=== PATIENT | female | born 1930 | race Hispanic/Latino ===

== ENCOUNTER 2018-02-17 11:57 | Inpatient (IN) | payer MEDICARE ==
[2018-02-17 12:01] VITALS: BMI 14.1
[2018-02-17] MEDS ORDERED: Sodium Chloride 0.9% 1,000 ML IV STA (12:14)
--- NOTE | 2018-02-17 12:16 | ED PDOC ---
Arrival/HPI - General Chief Complaint: GI Problem Time Seen by Provider: 02/17/18 12:14 Historian: Patient, Family - History of Present Illness Narrative History of Present Illness (Text): 02/17/18 12:16 Patient reports 5 day history of diarrhea, ranging from one episode per day to 4 -5 episodes per day. No fever, nausea, vomiting, or abdominal pain. Patient was on Augmentin for a UTI two months ago. Family notes she has not been eating very much, and has had generalized weakness for the past day or so, which is what concerned them. Patient has not had headache, dizziness or syncope. Time/Duration: Other (5 days) Symptom Course: Improving Quality: Other (No pain) Past Medical History - Provider Review Nursing Documentation Reviewed: Yes - Travel History Have you recently traveled outside [place] w/in the past 3 mons?: No - Infectious Disease Hx of Infectious Diseases: None - Cardiac Hx Cardiac Disorders: Yes (Afib) Hx Atrial Fibrillation: Yes Hx Hypertension: Yes - Pulmonary Hx Pneumonia: Yes - Neurological Hx Neurological Disorder: Yes (forgetful) - HEENT Hx Cataracts: Yes (b/l sx) Hx Deafness: (family denies) - Renal Hx Renal Disorder: No - Endocrine/Metabolic Hx Endocrine Disorders: No - Hematological/Oncological Hx Blood Disorders: No Hx Cancer: Yes (skin ca removed from nose) Other/Comment: family not sure what kind of skin ca pt had - Integumentary Hx Dermatological Disorder: No Other/Comment: AGE SPOTS over legs and chest, right posterior ankle healed wound - Musculoskeletal/Rheumatological Hx Arthritis: Yes (OA) - Gastrointestinal Hx Gastrointestinal Disorders: No - Genitourinary/Gynecological Hx Genitourinary Disorders: No Hx Reproductive Disorders: No - Psychiatric Hx Anxiety: Yes Hx Substance Use: No - Surgical History Other/Comment: HYSTERECTOMY,CATARACT SURGERY. Right Hip repair Oct 2015 - Anesthesia Hx Anesthesia: Yes Hx Anesthesia Reactions: No Hx Malignant Hyperthermia: No Family/Social History - Physician Review Nursing Documentation Reviewed: Yes Family/Social History: Unknown Family HX Smoking Status: Never Smoked Hx Alcohol Use: No Hx Substance Use: No Allergies/Home Meds Allergies/Adverse Reactions: Allergies iv dye Adverse Reaction (Uncoded 05/14/16 09:28) SWELLING Home Medications: Home Meds Medication Instructions Recorded Confirmed Digoxin 0.125 mg PO DAILY 03/27/16 02/17/18 Sertraline [Zoloft] 25 mg PO DAILY 03/27/16 02/17/18 ALPRAZolam [Xanax] 0.5 mg PO DAILY 05/09/16 02/17/18 Review of Systems - Review of Systems Constitutional: Other (Generalized weakness) Respiratory: Normal Cardiovascular: Normal Gastrointestinal: Diarrhea. absent: Abdominal Pain, Nausea, Vomiting Musculoskeletal: Normal Skin: Normal Neurological: absent: Headache, Dizziness Psychiatric: Normal Physical Exam Vital Signs Reviewed: Yes Vital Signs Temp Pulse Resp BP Pulse Ox 02/17/18 15:14 98.0 F 68 18 135/70 99 02/17/18 12:10 98.1 F 64 18 126/74 97 Temperature: Afebrile Blood Pressure: Normal Pulse: Regular Respiratory Rate: Normal Appearance: Positive for: Well-Appearing, Non-Toxic Pain Distress: None Mental Status: Positive for: other (Baseline mild dementia- forgetful about some things but oriented) - Systems Exam Head: Present: Atraumatic Pupils: Present: PERRL Extroacular Muscles: Present: EOMI Conjunctiva: Present: Normal Mouth: Present: Moist Mucous Membranes Respiratory/Chest: Present: Clear to Auscultation Cardiovascular: Present: Regular Rate and Rhythm Abdomen: No: Tenderness, Distention, Rebound, Guarding Upper Extremity: Present: Normal Inspection Lower Extremity: Present: Normal Inspection Neurological: Present: GCS=15, Speech Normal Skin: Present: Warm, Dry Medical Decision Making ED Course and Treatment: Patient given 1L NS bolus. 02/17/18 14:20 Results discussed with patient and family. Electrolytes within normal limits. Family asking for cdiff stool test, which was ordered, however explained that results will not be immediately available. Patient's family states that patient has had decreased UOP and is more confused than usual. States that they would feel more comfortable if the patient was admitted. 02/17/18 15:[address] García who accepts admission. Bridging orders placed. Discussed plan with patient and family. Patient non-toxic, awake and alert, in no distress with no complaints throughout Emergency department course. Re-evaluation Time: 14:20 Reassessment Condition: Improved - Lab Interpretations Lab Results: 02/17/18 12:50 02/17/18 12:50 Lab Results 02/17/18 12:50: Sodium 143, Potassium 4.3, Chloride 100, Carbon Dioxide 28, Anion Gap 19, BUN 17, Creatinine 0.8, Est GFR ( Amer) > 60, Est GFR (Non- Af Amer) > 60, Random Glucose 120 H, Calcium 9.7, Phosphorus 3.4, Magnesium 1.9 02/17/18 12:50: WBC 5.3, RBC 4.43, Hgb 13.0, Hct 39.1, MCV 88.3, MCH 29.3, MCHC 33.2, RDW 14.8 H, Plt Count 111 L, MPV 9.4, Gran % 79.0 H, Lymph % (Auto) 11.8 L , F[place]ardo % (Auto) 8.3 H, Eos % (Auto) 0.9 L, Baso % (Auto) 0.0, Gran # 4.16, Lymph # (Auto) 0.6 L, F[place]ardo # (Auto) 0.4, Eos # (Auto) 0.1, Baso # (Auto) 0.00 - Medication Orders Current Medication Orders: Discontinued Medications Sodium Chloride (Sodium Chloride 0.9%) 1,000 mls @ 999 mls/hr IV .[id number] STA Stop: 02/17/18 13:14 Last Admin: 02/17/18 13:02 Dose: 999 mls/hr eMAR Start Stop Document 02/17/18 13:02 [facility] [place] (Rec: 02/17/18 13:02 [facility] [place] [id number]) Intravenous Solution Start Date 02/17/18 Start Time 13:02 End Date 02/17/18 End time 13:03 Total Infusion Time 1 Disposition/Present on Arrival - Present on Arrival Any Indicators Present on Arrival: No History of DVT/PE: No History of Uncontrolled Diabetes: No Urinary Catheter: No History of Decub. Ulcer: No History Surgical Site Infection Following: None - Disposition Have Diagnosis and Disposition been Completed?: Yes Diagnosis: Diarrhea Disposition: HOSPITALIZED Disposition Time: 15:42 (Admitted to Dr. García- observation) Patient Plan: Observation Condition: GOOD Forms: [facility] (Yoruba)
[2018-02-17 13:10] LABS: EOS # 0.1 (0.0-0.7); EOS % 0.9 % (1.5-5.0); GRAN # 4.16 (1.4-6.5); LYMPH # 0.6 (1.2-3.4); LYMPH % 11.8 % (22.0-35.0); MEAN CELL VOLUME 88.3 fl (80.0-105.0); MEAN CORPUSCULAR HEMOGLOBIN 29.3 pg (25.0-35.0); MEAN CORPUSCULAR HGB CONC 33.2 g/dl (31.0-37.0); MEAN PLATELET VOLUME 9.4 fl (7.0-11.0); MONO # 0.4 (0.1-0.6); MONO % 8.3 % (1.0-6.0); RBC 4.43 10^6/uL (3.5-6.1); RED CELL DISTRIBUTION WIDTH 14.8 % (11.5-14.5); WHITE BLOOD COUNT 5.3 10^3/ul (4.5-11.0)
[2018-02-17 13:20] LABS: BLOOD UREA NITROGEN 17 mg/dL (7-21); CALCIUM 9.7 mg/dL (8.4-10.5); GFR AFRICAN-AMERICAN > 60; GFR NON-AFRICAN AMERICAN > 60
[2018-02-17] MEDS: Dextrose 5%/0.45% NS 1,000 ML IV SCH (19:09)
[2018-02-17] MEDS: Digoxin 125 mcg (0.125 mg) Tab PO SCH (19:41)
[2018-02-18 06:30] LABS: BASO # 0.01 K/mm3 (0.0-2.0); BASO % 0.3 % (0.0-3.0); EOS # 0.1 (0.0-0.7); EOS % 3.1 % (1.5-5.0); GRAN # 2.48 (1.4-6.5); GRAN % 63.9 % (50.0-68.0); LYMPH # 0.9 (1.2-3.4); LYMPH % 23.7 % (22.0-35.0); MEAN CELL VOLUME 88.2 fl (80.0-105.0); MEAN CORPUSCULAR HEMOGLOBIN 29.1 pg (25.0-35.0); MEAN PLATELET VOLUME 9.6 fl (7.0-11.0); MONO # 0.4 (0.1-0.6); RBC 3.47 10^6/uL (3.5-6.1); RED CELL DISTRIBUTION WIDTH 14.9 % (11.5-14.5); WHITE BLOOD COUNT 3.9 10^3/ul (4.5-11.0)
[2018-02-18 06:38] LABS: HEMOGLOBIN 10.1 g/dL (12.0-16.0)
[2018-02-18 07:24] LABS: ALB/GLOB RATIO 1.2 (1.1-1.8); ALBUMIN 3.1 g/dL (3.0-4.8); ALT/SGPT 20 U/L (7-56); AST/SGOT 22 U/L (14-36); BLOOD UREA NITROGEN 13 mg/dL (7-21); CALCIUM 8.3 mg/dL (8.4-10.5); GFR AFRICAN-AMERICAN > 60; GFR NON-AFRICAN AMERICAN > 60
[2018-02-18] MEDS: Digoxin 125 mcg (0.125 mg) Tab PO SCH (10:30)
[2018-02-18] MEDS ORDERED: Potassium Chloride 20 mEq ER Tab PO ONE (10:43)
--- NOTE | 2018-02-18 18:20 | US ---
PROCEDURE: Bilateral carotid artery duplex ultrasound HISTORY: Carotid stenosis carotid bruit PHYSICIAN(S): Isael Jimenez MD. TECHNIQUE: Duplex sonography and color-flow Doppler were used to evaluate the carotid bifurcations and limited segments of the vertebral arteries bilaterally. FINDINGS: There is mild to moderate focal heterogeneous plaque noted at the carotid bifurcations bilaterally. The peak systolic velocity in the proximal right internal carotid artery is 84 cm/sec. This corresponds to a 20 to 39% proximal right ICA stenosis. Normal systolic velocities are noted in the proximal right external carotid artery. There is antegrade flow in the right vertebral artery. The peak systolic velocity in the proximal left internal carotid artery is 61 cm/sec. This corresponds to a 20 to 39% proximal left ICA stenosis. Normal systolic velocities are noted in the proximal left external carotid artery. There is antegrade flow in the left vertebral artery. IMPRESSION: 1. 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 2. Antegrade flow in both vertebral arteries.
[2018-02-18] MEDS: Vancomycin 500 mg (Oral/Rectal USE) PO SCH ×2 (19:01→21:12)
--- NOTE | 2018-02-18 20:35 | CON ---
BRIEF CLINICAL HISTORY: This is an 87-year-old female with past medical history significant for chronic atrial fibrillation on anticoagulation hypertension, idiopathic thrombocytopenic purpura admitted after the family brought because the patient was having diarrhea, 1 to 5 per day since last Thursday. Though, the patient completely denies that only 2 episode, but the family insist that she is having 5 episode of diarrhea everyday. Also, feeling very weak and lethargic. PAST MEDICAL HISTORY: Significant for hypertension, chronic atrial fibrillation, idiopathic thrombocytopenic purpura, aortic stenosis. PAST SURGICAL HISTORY: Significant for fall status post hip fracture, status post open reduction and internal fixation in 2016. PREVIOUS CARDIAC WORKUP: Patient had echocardiography done on 10/15/2015 that shows ejection fraction 65%, trace aortic regurgitation, mild aortic stenosis versus aortic sclerosis, moderate to severe mitral regurgitation, moderate to severe tricuspid regurgitation, RV systolic pressure 47, multiple just probably RV systolic pressure underestimated because of JET configuration. The patient's bilateral carotid on 03/26/2016 that shows bilateral 20-39% stenosis. SOCIAL HISTORY: Denies smoking. Denies any history of alcohol abuse. CURRENT MEDICATIONS: The patient is taking at home Zoloft 25 mg daily, metoprolol Lopressor 50 b.i.d., digoxin 0.125 mg daily, Eliquis 2.5 mg daily, Xanax 0.5 mg daily. REVIEW OF SYSTEMS: As per HPI. PHYSICAL EXAMINATION VITAL SIGNS: As follows: Temperature afebrile, heart rate 83, blood pressure 150/83. HEENT: PERRLA. Extraocular muscles intact. NECK: Supple. No carotid bruit or thyromegaly. CHEST: Clear to auscultation. HEART: S1, S2 regular. ABDOMEN: Soft. EXTREMITIES: Clubbing and cyanosis negative. LABORATORY DATA: Blood workup as follows: WBC 3.9, hemoglobin , hematocrit 30.6, platelet count 102. Chemistries: Shows sodium 140, potassium 3.3, chloride of 104, carbon dioxide 27, anion gap of 12, BUN 13, creatinine 0.6. IMPRESSION: Diarrhea rule out Clostridium difficile colitis because the patient had recently got antibiotics, history of aortic stenosis, history of severe mitral regurgitation, history of atrial fibrillation, history of failure to thrive, history of idiopathic thrombocytopenic purpura for a long time, hypertension, atrial fibrillation, history of hip surgery, hip fracture, also mild pulmonary hypertension. RECOMMENDATIONS: We will send stool for C. diff colitis, GI evaluation. We will get echo to suggest severity of progression of aortic stenosis, severity of mitral regurgitation. Also, we will get carotid Duplex because last time in 2015, the patient had bilateral , [id number] disease. We will follow with you. Thank you, Dr. García, for providing us the opportunity in taking care of the patient, Mckenna Cardoso. We will get lipid profile, TSH, hemoglobin A1c as well. Kathy Boothe MD
--- NOTE | 2018-02-18 21:02 | HP ---
HISTORY OF PRESENT ILLNESS: Patient is 87 years old, who is basically homebound, lives with her starch and prosize mixer. According to patient and person taking care, she has been having nausea, diarrhea, poor oral intake for almost a week, got worse in the last 2 days. Yesterday she was getting extremely weak that she was unable to get out of bed. They had to drag her. Usually she does ambulate somewhat with minimal assistance. So, she was brought to Emergency Room for further evaluation. She was found to be dehydrated, so was started on IV fluids. Had episode of two BMs and so far no hemoptysis, no hematemesis. Patient states she does have appetite. No history of fever, no chills. PAST MEDICAL HISTORY: Significant for, 1. Hypertension. 2. Chronic AFib, on anticoagulant. 3. Anxiety disorder. 4. Dementia. ALLERGIES: SHE IS ALLERGIC TO IV DYES. MEDICATIONS AT HOME: She is on Zoloft 25 daily, metoprolol 50 mg twice a day, digoxin 0.125 daily, Eliquis 2.5 b.i.d., Xanax 0.5 daily. SOCIAL HISTORY: She lives with home health aide in her own house. No history of smoking, drinking, or alcohol use. PHYSICAL EXAMINATION: GENERAL: She is awake, alert, oriented, and answers simple questions, a little forgetful. According to starch and prosize mixer, she gets sundowning and gets confused at times. VITAL SIGNS: She is afebrile, pulse 83, respiration 18, blood pressure 150/83. LUNGS: Bilateral good airflow. No rhonchi or crackles. HEART: S1 and S2 audible. ABDOMEN: Soft, nontender, no rebound, no guarding. NEUROLOGICALLY: Patient is awake and alert and oriented, confused at times. LABORATORY DATA: WBC 3.9, hemoglobin 10.1, hematocrit 30.6, platelet of 102. Chemistry: Sodium 140, potassium 3.3, chloride 104, CO2 of 27, BUN 13, creatinine 0.6, blood sugar of 117. Digoxin level is 0.9. ASSESSMENT AND PLAN: 1. Gastroenteritis. 2. Dehydration. 3. Chronic atrial fibrillation. 4. Deconditioning and difficulty walking. PLAN: Continue patient on IV fluid, echo and carotid Doppler has been requested, encourage physical therapy. Dr. Townsend to evaluate the patient and I will supplement potassium, continue IV fluid until she catch up on her fluid intake. I will follow up electrolyte in the a.m. Sulaiman García MD
[2018-02-19 07:08] LABS: BASO # 0.01 K/mm3 (0.0-2.0); BASO % 0.3 % (0.0-3.0); EOS # 0.1 (0.0-0.7); EOS % 1.4 % (1.5-5.0); GRAN # 2.32 (1.4-6.5); GRAN % 66.7 % (50.0-68.0); HEMOGLOBIN 10.7 g/dL (12.0-16.0); LYMPH # 0.7 (1.2-3.4); LYMPH % 20.7 % (22.0-35.0); MEAN CELL VOLUME 86.9 fl (80.0-105.0); MEAN CORPUSCULAR HEMOGLOBIN 28.5 pg (25.0-35.0); MEAN CORPUSCULAR HGB CONC 32.8 g/dl (31.0-37.0); MEAN PLATELET VOLUME 9.5 fl (7.0-11.0); MONO # 0.4 (0.1-0.6); MONO % 10.9 % (1.0-6.0); RBC 3.75 10^6/uL (3.5-6.1); RED CELL DISTRIBUTION WIDTH 14.7 % (11.5-14.5); WHITE BLOOD COUNT 3.5 10^3/ul (4.5-11.0)
[2018-02-19 07:18] LABS: ALB/GLOB RATIO 1.3 (1.1-1.8); ALBUMIN 3.3 g/dL (3.0-4.8); ALT/SGPT 19 U/L (7-56); AST/SGOT 26 U/L (14-36); BLOOD UREA NITROGEN 8 mg/dL (7-21); CALCIUM 8.9 mg/dL (8.4-10.5); GFR AFRICAN-AMERICAN > 60; GFR NON-AFRICAN AMERICAN > 60; HDL CHOLESTEROL 29 mg/dL (29-60)
[2018-02-19 07:28] LABS: LDL CHOLESTEROL 59 mg/dL (0-129)
--- NOTE | 2018-02-19 07:49 | CP.PCM.PN ---
Subjective - Date & Time of Evaluation Date of Evaluation: 02/19/18 Time of Evaluation: 06:45 - Subjective Subjective: Awake,alert,lying in bed,no distress Reason for consultation and follow up: Cardiac evaluation, history of chronic atrial fibrillation on eliquis,hypertension, idiopathic thrombocytopenic purpura , admitted for diarrhea Seen and examined by me and Dr. Boothe Objective - Vital Signs/Intake and Output Vital Signs (last 24 hours): Temp Pulse Resp BP Pulse Ox 98.1 F 67 16 147/72 100 02/18/18 22:21 02/18/18 22:21 02/18/18 22:21 02/18/18 22:21 02/18/18 22:21 - Medications Medications: Current Medications Alprazolam (Xanax) 0.5 mg PO DAILY PENDING SALE TO [facility] PRN Reason: Protocol Last Admin: 02/18/18 21:12 Dose: 0.5 mg Apixaban (Eliquis) 2.5 mg PO BID PENDING SALE TO [facility] PRN Reason: Protocol Last Admin: 02/18/18 17:30 Dose: 2.5 mg Digoxin (Digoxin) 0.125 mg PO DAILY PENDING SALE TO [facility] Last Admin: 02/18/18 10:30 Dose: 0.125 mg Dextrose/Sodium Chloride (Dextrose 5%/0.45% Ns 1000 Ml) 1,000 mls @ 75 mls/hr IV .[id number] PENDING SALE TO [facility] Last Admin: 02/17/18 19:09 Dose: 75 mls/hr Metoprolol Tartrate (Lopressor) 50 mg PO BID PENDING SALE TO [facility] Last Admin: 02/18/18 17:29 Dose: 50 mg Sertraline HCl (Zoloft) 25 mg PO DAILY PENDING SALE TO [facility] Last Admin: 02/18/18 10:33 Dose: 25 mg Vancomycin HCl (Vancocin (Oral/Rectal Use)) 250 mg PO QID PENDING SALE TO [facility] PRN Reason: Protocol Last Admin: 02/18/18 21:12 Dose: 250 mg - Labs Labs: 02/19/18 06:30 02/19/18 06:30 - Constitutional Appears: No Acute Distress, Cachectic - Eye Exam Eye Exam: Normal appearance - ENT Exam ENT Exam: Mucous Membranes Moist - Respiratory Exam Respiratory Exam: Clear to Ausculation Bilateral, NORMAL BREATHING PATTERN - Cardiovascular Exam Cardiovascular Exam: +S1, +S2 - GI/Abdominal Exam GI & Abdominal Exam: Soft, Normal Bowel Sounds - Extremities Exam Extremities Exam: Normal Capillary Refill - Neurological Exam Neurological Exam: Alert, Awake - Psychiatric Exam Psychiatric exam: Normal Affect, Normal Mood - Skin Skin Exam: Normal Color, Warm Assessment and Plan - Assessment and Plan (Free Text) Assessment: A 87 year old female who was brought to ER by family member due to diarrhea for 5 days. History of chronic atrial fibrillation on eliquis,hypertension, idiopathic thrombocytopenic purpura, dementia,anxiety. On contact isolation for positive C-diff infection., on antibiotics. Plan: On contact isolation for positive stool C-diff On antibiotics, oral Vancomycin ID on consult Systolic blood pressure 150's-160's Will add Norvasc 5 mg daily Heart rate stable Stable cardiac status On Eliquis 2.5 mg BID,Digoxin 0.125mg BID, Lopressor 50 mg BID Continue IV fluids for hydration Continue current treatment Continue current medications Will follow up Plan and treatment discussed with Dr. Boothe
[2018-02-19] MEDS: Vancomycin 500 mg (Oral/Rectal USE) PO SCH (10:00)
[2018-02-19] MEDS: Digoxin 125 mcg (0.125 mg) Tab PO SCH (10:43)
[2018-02-19] MEDS: Dextrose 5%/0.45% NS 1,000 ML IV SCH ×2 (10:44→16:28)
--- NOTE | 2018-02-19 11:56 | CP.PCM.CON ---
<Marck Verdugo - Last Filed: 02/19/18 12:01> History of Present Illness - History of Present Illness History of Present Illness: Podiatry Consult note for Dr. Capellan 87F with PMH including A fib and HTN seen for consult of onychomycosis. Patient is AAO x 3 and NAD, resting comfortably in bed with her daughter at bedside. Patient states that her nails are elongated and painful. She denies any further pedal complaints at this time. Review of Systems - Review of Systems All systems: reviewed and no additional remarkable complaints except Review of Systems: as per HPI Past Patient History - Infectious Disease Hx of Infectious Diseases: None - Past Social History Smoking Status: Never Smoked - CARDIAC Hx Cardiac Disorders: Yes (A fib) Hx Hypertension: Yes - PULMONARY Hx Pneumonia: Yes - NEUROLOGICAL Hx Neurological Disorder: Yes (forgetful) Hx Dementia: Yes - HEENT Hx Cataracts: Yes (b/l sx) Hx Deafness: (family denies) - RENAL Hx Chronic Kidney Disease: No - ENDOCRINE/METABOLIC Hx Endocrine Disorders: No - HEMATOLOGICAL/ONCOLOGICAL Hx Blood Disorders: No Hx Cancer: Yes (skin ca removed from nose) Other/Comment: family not sure what kind of skin ca pt had - INTEGUMENTARY Hx Dermatological Problems: No Hx Basil Cell: (skin CA (nose)) Hx Melanoma: Yes Other/Comment: AGE SPOTS over legs and chest, right posterior ankle healed wound - MUSCULOSKELETAL/RHEUMATOLOGICAL Hx Arthritis: Yes - GASTROINTESTINAL Hx Gastrointestinal Disorders: No - GENITOURINARY/GYNECOLOGICAL Hx Urinary Tract Infection: Yes - PSYCHIATRIC Hx Anxiety: Yes Hx Depression: Yes - SURGICAL HISTORY Hx Hysterectomy: Yes (age 44 yrs) Other/Comment: HYSTERECTOMY,CATARACT SURGERY. Right Hip repair Oct 2015 - ANESTHESIA Hx Anesthesia: Yes Hx Anesthesia Reactions: No Hx Malignant Hyperthermia: No Meds Allergies/Adverse Reactions: Allergies Allergy/AdvReac Type Severity Reaction Status Date / Time iv dye AdvReac SWELLING Uncoded 02/17/18 20:00 - Medications Medications: Current Medications Alprazolam (Xanax) 0.5 mg PO DAILY [facility] PRN Reason: Protocol Last Admin: 02/18/18 21:12 Dose: 0.5 mg Amlodipine Besylate (Norvasc) 5 mg PO DAILY [facility] Last Admin: 02/19/18 10:44 Dose: 5 mg Apixaban (Eliquis) 2.5 mg PO BID [facility] PRN Reason: Protocol Last Admin: 02/19/18 10:44 Dose: 2.5 mg Digoxin (Digoxin) 0.125 mg PO DAILY [facility] Last Admin: 02/19/18 10:43 Dose: 0.125 mg Dextrose/Sodium Chloride (Dextrose 5%/0.45% Ns 1000 Ml) 1,000 mls @ 75 mls/hr IV .[id number] [facility] Last Admin: 02/19/18 10:44 Dose: 75 mls/hr Metoprolol Tartrate (Lopressor) 50 mg PO BID [facility] Last Admin: 02/19/18 10:44 Dose: 50 mg Sertraline HCl (Zoloft) 25 mg PO DAILY [facility] Last Admin: 02/19/18 10:44 Dose: 25 mg Vancomycin HCl (Vancocin 25 Mg/Ml (Oral Use)) 250 mg PO QID [facility] PRN Reason: Protocol Physical Exam - Constitutional Appears: Well, Non-toxic, No Acute Distress - Head Exam Head Exam: ATRAUMATIC, NORMOCEPHALIC - Extremities Exam Additional comments: B/l LE focused exam: Vasc: DP/PT pulses faintly palpable b/l. Skin temperature warm to warm from proximal to distal. CFT < 3 seconds to all digits b/l. No edema noted b/l Neuro: Epicritic and protective sensation grossly intact b/l Derm: Elongated, thickened, yellow nails noted to digits 1-5 b/l. No open lesions, wounds, maceration, xerosis, abnormal pigmentation or abnormal growths noted b/l MSK: Hammering of digits 2-5 b/l. HAV b/l. MMT appropriate for age. ROM WNL at all major joints except in digits where rigid contractures are noted - Neurological Exam Neurological exam: Alert, Oriented x3 - Psychiatric Exam Psychiatric exam: Normal Affect, Normal Mood Results - Vital Signs Recent Vital Signs: Last Vital Signs Temp 97.6 F 02/19/18 06:00 Pulse 62 02/19/18 06:00 Resp 18 02/19/18 06:00 BP 156/75 H 02/19/18 06:00 Pulse Ox 95 02/19/18 06:00 - Labs Result Diagrams: 02/19/18 06:30 02/19/18 06:30 Labs: Laboratory Results - last 24 hr 06/02/19/18 02/19/18 06:30 06:30 06:30 WBC 3.5 L RBC 3.75 Hgb 10.7 L Hct 32.6 L MCV 86.9 MCH 28.5 MCHC 32.8 RDW 14.7 H Plt Count 112 L MPV 9.5 Gran % 66.7 Lymph % (Auto) 20.7 L [place] % (Auto) 10.9 H Eos % (Auto) 1.4 L Baso % (Auto) 0.3 Gran # 2.32 Lymph # (Auto) 0.7 L [place] # (Auto) 0.4 Eos # (Auto) 0.1 Baso # (Auto) 0.01 Sodium 145 Potassium 4.4 Chloride 107 Carbon Dioxide 27 Anion Gap 15 BUN 8 Creatinine 0.5 L Est GFR ( Amer) > 60 Est GFR (Non-Af Amer) > 60 Random Glucose 126 H Calcium 8.9 Phosphorus 2.3 L Magnesium 1.8 Total Bilirubin 0.4 AST 26 ALT 19 Alkaline Phosphatase 74 Total Protein 6.0 Albumin 3.3 Globulin 2.6 Albumin/Globulin Ratio 1.3 Triglycerides 96 Cholesterol 109 L LDL Cholesterol Direct 59 HDL Cholesterol 29 TSH 3rd Generation 2.07 Assessment & Plan - Assessment and Plan (Free Text) Assessment: 87F with PMH including A fib and HTN seen for elongated, thickened painful toenails b/l Plan: Patient seen and evaluated Plan discussed with attending Dr. Capellan Afebrile, WBC 8.6 Patient's nails debrided down to appropriate length 1-5 b/l without any incident using nail nippers Offloading boots ordered to be worn at all times while in bed Patient is stable from podiatric standpoint at this time Podiatry to sign off Please reconsult in future as needed - Date & Time Date: 02/19/18 Time: 12:01 <Kumar Capellan - Last Filed: 02/19/18 15:07> Meds - Medications Medications: Current Medications Alprazolam (Xanax) 0.5 mg PO DAILY [facility] PRN Reason: Protocol Last Admin: 02/19/18 15:05 Dose: Not Given Amlodipine Besylate (Norvasc) 5 mg PO DAILY [facility] Last Admin: 02/19/18 10:44 Dose: 5 mg Apixaban (Eliquis) 2.5 mg PO BID [facility] PRN Reason: Protocol Last Admin: 02/19/18 10:44 Dose: 2.5 mg Digoxin (Digoxin) 0.125 mg PO DAILY [facility] Last Admin: 02/19/18 10:43 Dose: 0.125 mg Dextrose/Sodium Chloride (Dextrose 5%/0.45% Ns 1000 Ml) 1,000 mls @ 75 mls/hr IV .[id number] [facility] Last Admin: 02/19/18 10:44 Dose: 75 mls/hr Metoprolol Tartrate (Lopressor) 50 mg PO BID [facility] Last Admin: 02/19/18 10:44 Dose: 50 mg Risperidone (Risperdal Tab) 0.25 mg PO HS [facility] PRN Reason: Protocol Risperidone (Risperdal Tab) 0.25 mg PO DAILY [facility] PRN Reason: Protocol Sertraline HCl (Zoloft) 25 mg PO DAILY [facility] Last Admin: 02/19/18 10:44 Dose: 25 mg Vancomycin HCl (Vancocin 25 Mg/Ml (Oral Use)) 250 mg PO QID [facility] PRN Reason: Protocol Last Admin: 02/19/18 13:09 Dose: 250 mg Results - Vital Signs Recent Vital Signs: Last Vital Signs Temp 97.6 F 02/19/18 06:00 Pulse 62 02/19/18 06:00 Resp 18 02/19/18 06:00 BP 156/75 H 02/19/18 06:00 Pulse Ox 95 02/19/18 06:00 - Labs Result Diagrams: 02/19/18 06:30 02/19/18 06:30 Labs: Laboratory Results - last 24 hr 02/19/18 02/19/18 02/19/18 06:30 06:30 06:30 WBC 3.5 L RBC 3.75 Hgb 10.7 L Hct 32.6 L MCV 86.9 MCH 28.5 MCHC 32.8 RDW 14.7 H Plt Count 112 L MPV 9.5 Gran % 66.7 Lymph % (Auto) 20.7 L [place] % (Auto) 10.9 H Eos % (Auto) 1.4 L Baso % (Auto) 0.3 Gran # 2.32 Lymph # (Auto) 0.7 L [place] # (Auto) 0.4 Eos # (Auto) 0.1 Baso # (Auto) 0.01 Sodium 145 Potassium 4.4 Chloride 107 Carbon Dioxide 27 Anion Gap 15 BUN 8 Creatinine 0.5 L Est GFR ( Amer) > 60 Est GFR (Non-Af Amer) > 60 Random Glucose 126 H Hemoglobin A1c 5.6 Calcium 8.9 Phosphorus 2.3 L Magnesium 1.8 Total Bilirubin 0.4 AST 26 ALT 19 Alkaline Phosphatase 74 Total Protein 6.0 Albumin 3.3 Globulin 2.6 Albumin/Globulin Ratio 1.3 Triglycerides 96 Cholesterol 109 L LDL Cholesterol Direct 59 HDL Cholesterol 29 TSH 3rd Generation Urine Color Urine Appearance Urine pH Ur Specific [place] Urine Protein Urine Glucose (UA) Urine Ketones Urine Blood Urine Nitrate Urine Bilirubin Urine Urobilinogen Ur Leukocyte Esterase Urine RBC Urine WBC Ur Epithelial Cells Urine Bacteria Urine Other 02/19/18 02/19/18 06:30 14:20 WBC RBC Hgb Hct MCV MCH MCHC RDW Plt Count MPV Gran % Lymph % (Auto) [place] % (Auto) Eos % (Auto) Baso % (Auto) Gran # Lymph # (Auto) [place] # (Auto) Eos # (Auto) Baso # (Auto) Sodium Potassium Chloride Carbon Dioxide Anion Gap BUN Creatinine Est GFR ( Amer) Est GFR (Non-Af Amer) Random Glucose Hemoglobin A1c Calcium Phosphorus Magnesium Total Bilirubin AST ALT Alkaline Phosphatase Total Protein Albumin Globulin Albumin/Globulin Ratio Triglycerides Cholesterol LDL Cholesterol Direct HDL Cholesterol TSH 3rd Generation 2.07 Urine Color Light red Urine Appearance Cloudy Urine pH 6.0 Ur Specific [place] 1.010 Urine Protein 30 H Urine Glucose (UA) Negative Urine Ketones Negative Urine Blood Large H Urine Nitrate Negative Urine Bilirubin Negative Urine Urobilinogen 0.2 Ur Leukocyte Esterase Large H Urine RBC Tntc Urine WBC Tntc Ur Epithelial Cells 3 - 4 Urine Bacteria Many Urine Other [facility]ast Attending/Attestation - Attestation I have personally seen and examined this patient.: Yes I have fully participated in the care of the patient.: Yes I have reviewed all pertinent clinical information: Yes
[2018-02-19] MEDS: Vancomycin 25 MG/ML PO SCH ×3 (13:09→22:09)
[2018-02-19 14:48] LABS: URINE APPEARANCE CLOUDY (CLEAR); URINE BILIRUBIN NEGATIVE (NEGATIVE); URINE BLOOD LARGE (NEGATIVE); URINE COLOR LIGHT RED (YELLOW); URINE GLUCOSE (UA) NEGATIVE (NEGATIVE); URINE LEUKOCYTE ESTERASE LARGE Leu/uL (NEGATIVE); URINE PROTEIN 30 mg/dL (<30 mg/dL); URINE UROBILINOGEN 0.2 E.U./dL (<1 E.U./dL)
[2018-02-19 14:51] LABS: URINE RBC TNTC /hpf (0-2); URINE WBC TNTC /hpf (0-6)
[2018-02-19 14:52] LABS: URINE BACTERIA MANY (NEG)
--- NOTE | 2018-02-19 15:29 | CARD ---
APPROVED REPORT EXAM: Two-dimensional and M-mode echocardiogram with Doppler and color Doppler. INDICATION /LVFX 2D DIMENSIONS Left Atrium (2D)6.2 (1.6-4.0cm)IVSd0.8 (0.7-1.1cm) LVDd4.2 (3.9-5.9cm)PWd0.9 (0.7-1.1cm) LVDs2.6 (2.5-4.0cm)FS (%) 37.6 % LVEF (%)68.1 (>50%) M-Mode DIMENSIONS Aortic Root3.00 (2.2-3.7cm)Aortic Cusp Exc.1.40 (1.5-2.0cm) Aortic Valve AoV Peak Tsquaysz435.0cm/Boby Peak GR.6mmHgLVOT Peak Wlcurvbi23.5cm/s LVOT VTI14.20cmAI P 1/2 [id number] Mitral Valve E/A ratio0.0 TDI E/Lateral E'0.0E/Medial E'0.0 Pulmonary Valve PV Peak Movrleed79.3cm/sPV Peak Grad.1mmHg Tricuspid Valve TR Peak Rekjqbty191oe/sRAP [id number] Peak Gr.40mmHg [id number] LEFT VENTRICLE The left ventricle is normal size. There is normal left ventricular wall thickness. The left ventricular function is normal. The left ventricular ejection fraction is within the normal range. There is normal LV segmental wall motion. A fib can not be assessed No left ventricle thrombus noted on this study. There is no ventricular septal defect visualized. There is no left ventricular aneurysm. RIGHT VENTRICLE The right ventricle is normal size. There is normal right ventricular wall thickness. The right ventricular systolic function is normal. ATRIA The left atrium is moderately dilated. The right atrium is mildly dilated. The interatrial septum is intact with no evidence for an atrial septal defect. AORTIC VALVE The aortic valve is calcified and displays decreased opening. There is mild aortic regurgitation. There is mild to moderate valvular aortic stenosis. There is no aortic valvular vegetation. MITRAL VALVE The mitral valve is thickened but opens well. Mitral annular calcification is moderate to severe. Mitral regurgitation is mild to moderate. There is no mitral valve stenosis. There is no evidence of mitral valve prolapse. TRICUSPID VALVE The tricuspid valve leaflets are thickened , but open well. There is moderate to severe tricuspid regurgitation.RVBSP-50 mmofhg. There is mild to moderate pulmonary hypertension. There is no tricuspid valve stenosis. There is no tricuspid valve prolapse or vegetation. PULMONIC VALVE The pulmonic valve is mildly thickened. There is trace pulmonic valvular regurgitation. There is no pulmonic valvular stenosis. GREAT VESSELS The aortic root is normal in size. The ascending aorta is normal in size. The pulmonary artery is normal. The IVC is normal in size and collapses >50% with inspiration. PERICARDIAL EFFUSION There is no pleural effusion. There is no pericardial effusion. <Conclusion> The left ventricle is normal size. There is normal left ventricular wall thickness. The left ventricular function is normal. The left ventricular ejection fraction is within the normal range. There is mild aortic regurgitation. There is mild to moderate valvular aortic stenosis. Mitral regurgitation is mild to moderate. There is moderate to severe tricuspid regurgitation.RVBSP-50 mmofhg. There is mild to moderate pulmonary hypertension. The IVC is normal in size and collapses >50% with inspiration. There is no pericardial effusion.
--- NOTE | 2018-02-19 16:00 | CP.PCM.CON ---
History of Present Illness - History of Present Illness History of Present Illness: The patient is an 87-year-old white female with no known prior psychiatric history who was admitted with gastric distress including nausea and diarrhea. 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 Before that she had also worked for the [employer] in [place] The patient is a [employer] [place] in high school graduate. That she had been for over 15 years until her to. She had 1 child that at age 3 months of spinal bifida. She was upset at that time but has gone onto a productive active . In addition to having visual hallucinations at times, which started a number of months ago, the patient also is of the impression that her mother is still alive and is 3 years older than she is! She is presently somewhat disoriented to time. She does not appear to be agitated. Rather she appears to be engaging She was interviewed at the bedside by 2 of her nieces who have been involved in her care, or concerns about her and they are considered to be a support network. She also has a full-time aide. The patient herself indicates that she spends her leisure time shopping. The patient has a history of hypertension Shirley fibrillation She has been maintained on an outpatient basis by her PMD on Zoloft 25 mg, Xanax 0.5 mg I will presently start the patient on low-dose Risperdal Review of Systems - Constitutional Constitutional: As Per HPI - EENT Eyes: As Per HPI Ears: As Per HPI Nose/Mouth/Throat: As Per HPI - Breasts Breasts: As Per HPI - Cardiovascular Cardiovascular: As Per HPI - Respiratory Respiratory: As Per HPI - Gastrointestinal Gastrointestinal: As Per HPI - Genitourinary Genitourinary: As Per HPI - Reproductive: Female Reproductive:Female: As Per HPI - Menstruation Menstruation: As Per HPI - Musculoskeletal Musculoskeletal: As Per HPI - Integumentary Integumentary: As Per HPI - Neurological Neurological: As Per HPI - Psychiatric Psychiatric: Depression, Visual Hallucinations Additional comments: Niece's report she is withdrawn and depressed at home. Not presently evident. - Endocrine Endocrine: As Per HPI - Hematologic/Lymphatic Hematologic: As Per HPI Past Patient History - Infectious Disease Hx of Infectious Diseases: None - Past Medical History & Family History Past Medical History?: Yes - Past Social History Smoking Status: Never Smoked Chewing Tobacco Use: No Cigar Use: No Alcohol: None Drugs: Denies Home Situation {Lives}: Other (Has full-time aid) - CARDIAC Hx Cardiac Disorders: Yes (A fib) Hx Atrial Fibrillation: Yes Hx Hypertension: Yes - PULMONARY Hx Pneumonia: Yes - NEUROLOGICAL Hx Neurological Disorder: Yes (forgetful) Hx Dementia: Yes - HEENT Hx Cataracts: Yes (b/l sx) Hx Deafness: (family denies) - RENAL Hx Chronic Kidney Disease: No - ENDOCRINE/METABOLIC Hx Endocrine Disorders: No - HEMATOLOGICAL/ONCOLOGICAL Hx Blood Disorders: No Hx Cancer: Yes (skin ca removed from nose) Other/Comment: family not sure what kind of skin ca pt had - INTEGUMENTARY Hx Dermatological Problems: No Hx Basil Cell: (skin CA (nose)) Hx Melanoma: Yes Other/Comment: AGE SPOTS over legs and chest, right posterior ankle healed wound - MUSCULOSKELETAL/RHEUMATOLOGICAL Hx Arthritis: Yes - GASTROINTESTINAL Hx Gastrointestinal Disorders: No - GENITOURINARY/GYNECOLOGICAL Hx Urinary Tract Infection: Yes - PSYCHIATRIC Hx Anxiety: Yes Hx Depression: Yes - SURGICAL HISTORY Hx Hysterectomy: Yes (age 44 yrs) Other/Comment: HYSTERECTOMY,CATARACT SURGERY. Right Hip repair Oct 2015 - ANESTHESIA Hx Anesthesia: Yes Hx Anesthesia Reactions: No Hx Malignant Hyperthermia: No Meds Allergies/Adverse Reactions: Allergies Allergy/AdvReac Type Severity Reaction Status Date / Time iv dye AdvReac SWELLING Uncoded 02/17/18 20:00 - Medications Medications: Current Medications Alprazolam (Xanax) 0.5 mg PO DAILY [facility] PRN Reason: Protocol Last Admin: 02/19/18 15:05 Dose: Not Given Amlodipine Besylate (Norvasc) 5 mg PO DAILY [facility] Last Admin: 02/19/18 10:44 Dose: 5 mg Apixaban (Eliquis) 2.5 mg PO BID [facility] PRN Reason: Protocol Last Admin: 02/19/18 10:44 Dose: 2.5 mg Digoxin (Digoxin) 0.125 mg PO DAILY [facility] Last Admin: 02/19/18 10:43 Dose: 0.125 mg Dextrose/Sodium Chloride (Dextrose 5%/0.45% Ns 1000 Ml) 1,000 mls @ 75 mls/hr IV .[id number] [facility] Last Admin: 02/19/18 10:44 Dose: 75 mls/hr Metoprolol Tartrate (Lopressor) 50 mg PO BID [facility] Last Admin: 02/19/18 10:44 Dose: 50 mg Risperidone (Risperdal Tab) 0.25 mg PO HS [facility] PRN Reason: Protocol Risperidone (Risperdal Tab) 0.25 mg PO DAILY [facility] PRN Reason: Protocol Sertraline HCl (Zoloft) 25 mg PO DAILY [facility] Last Admin: 02/19/18 10:44 Dose: 25 mg Vancomycin HCl (Vancocin 25 Mg/Ml (Oral Use)) 250 mg PO QID [facility] PRN Reason: Protocol Last Admin: 02/19/18 13:09 Dose: 250 mg Physical Exam - Psychiatric Exam Psychiatric exam: Normal Affect, Normal Mood - Expanded Psychiatric Exam Expanded Focused psych exam: Internal Stimuli Results - Vital Signs Recent Vital Signs: Last Vital Signs Temp 97.6 F 02/19/18 06:00 Pulse 62 02/19/18 06:00 Resp 18 02/19/18 06:00 BP 156/75 H 02/19/18 06:00 Pulse Ox 95 02/19/18 06:00 - Labs Result Diagrams: 02/19/18 06:30 02/19/18 06:30 Labs: Laboratory Results - last 24 hr 02/19/18 02/19/18 02/19/18 06:30 06:30 06:30 WBC 3.5 L RBC 3.75 Hgb 10.7 L Hct 32.6 L MCV 86.9 MCH 28.5 MCHC 32.8 RDW 14.7 H Plt Count 112 L MPV 9.5 Gran % 66.7 Lymph % (Auto) 20.7 L [place] % (Auto) 10.9 H Eos % (Auto) 1.4 L Baso % (Auto) 0.3 Gran # 2.32 Lymph # (Auto) 0.7 L [place] # (Auto) 0.4 Eos # (Auto) 0.1 Baso # (Auto) 0.01 Sodium 145 Potassium 4.4 Chloride 107 Carbon Dioxide 27 Anion Gap 15 BUN 8 Creatinine 0.5 L Est GFR ( Amer) > 60 Est GFR (Non-Af Amer) > 60 Random Glucose 126 H Hemoglobin A1c 5.6 Calcium 8.9 Phosphorus 2.3 L Magnesium 1.8 Total Bilirubin 0.4 AST 26 ALT 19 Alkaline Phosphatase 74 Total Protein 6.0 Albumin 3.3 Globulin 2.6 Albumin/Globulin Ratio 1.3 Triglycerides 96 Cholesterol 109 L LDL Cholesterol Direct 59 HDL Cholesterol 29 TSH 3rd Generation Urine Color Urine Appearance Urine pH Ur Specific [place] Urine Protein Urine Glucose (UA) Urine Ketones Urine Blood Urine Nitrate Urine Bilirubin Urine Urobilinogen Ur Leukocyte Esterase Urine RBC Urine WBC Ur Epithelial Cells Urine Bacteria Urine Other 02/19/18 02/19/18 06:30 14:20 WBC RBC Hgb Hct MCV MCH MCHC RDW Plt Count MPV Gran % Lymph % (Auto) [place] % (Auto) Eos % (Auto) Baso % (Auto) Gran # Lymph # (Auto) [place] # (Auto) Eos # (Auto) Baso # (Auto) Sodium Potassium Chloride Carbon Dioxide Anion Gap BUN Creatinine Est GFR ( Amer) Est GFR (Non-Af Amer) Random Glucose Hemoglobin A1c Calcium Phosphorus Magnesium Total Bilirubin AST ALT Alkaline Phosphatase Total Protein Albumin Globulin Albumin/Globulin Ratio Triglycerides Cholesterol LDL Cholesterol Direct HDL Cholesterol TSH 3rd Generation 2.07 Urine Color Light red Urine Appearance Cloudy Urine pH 6.0 Ur Specific [place] 1.010 Urine Protein 30 H Urine Glucose (UA) Negative Urine Ketones Negative Urine Blood Large H Urine Nitrate Negative Urine Bilirubin Negative Urine Urobilinogen 0.2 Ur Leukocyte Esterase Large H Urine RBC Tntc Urine WBC Tntc Ur Epithelial Cells 3 - 4 Urine Bacteria Many Urine Other U[facility]ast Assessment & Plan - Assessment and Plan (Free Text) Assessment: We'll start a low dose major tranquilizers and observe for abatement of psychotic ideation. Over the long-term we'll also monitor for mood changes
[2018-02-19] MEDS ORDERED: cefTRIAXone 1 gm 1 GM/100 ML BAG IVPB ONE (19:30)
--- NOTE | 2018-02-19 20:31 | PN ---
DATE: 02/19/2018 SUBJECTIVE: The patient is an 87-year-old, seen and examined, somewhat confused and disoriented at times. Oral intake is poor. Had two bowel movements since morning. No vomiting. PHYSICAL EXAMINATION: VITAL SIGNS: She is afebrile, pulse 62, respirations 18, blood pressure 156/75. LUNGS: Bilateral fair airflow. No rhonchi or crackle. HEART: S1 and S2 audible. ABDOMEN: Soft. Nontender. No rebound. No guarding. NEUROLOGIC: She is awake, alert, oriented, somewhat confused. EXTREMITIES: Bilateral legs, no edema. LABORATORY DATA: WBC 3.5, hemoglobin 10.7, hematocrit 32.6, platelets 112. Chemistry: Sodium 145, potassium 4.4, chloride 107, CO2 of 27, BUN 8, creatinine 0.5, blood sugar of 126. Hemoglobin A1c is 5.6. Phosphorus is 2.3, digoxin is 0.9. Urine shows gram-positive rods. Stool for C. diff, antigen is positive. ASSESSMENT: 1. Gastroenteritis. 2. Dehydration. 3. Deconditioning, difficulty walking. 4. Dementia with agitation at times. PLAN: We will cut down her IV fluid to 60 mL per hour. Continue on Eliquis for chronic AFib. Her potassium has been supplemented. She has been started on Risperdal and we will continue her on p.o. vancomycin and we will discuss this with power of commercial litigation attorney, Christelle, and she is requesting for subacute rehab since she is quite deconditioned and has difficulty walking. I will reach out to the [employer] and we will make plan. Sulaiman García MD
[2018-02-19 22:56] VITALS: RESP 18; O2SAT 98
[2018-02-20] MEDS: Piperacillin/Tazobact 3.375 gm 100 ML IVPB SCH ×2 (01:17→05:40)
[2018-02-20] MEDS: Vancomycin 25 MG/ML PO SCH ×2 (10:19→13:47)
[2018-02-20] MEDS: Digoxin 125 mcg (0.125 mg) Tab PO SCH (10:19)
[2018-02-20 10:24] VITALS: PULSE 78
[2018-02-20] MEDS: Dextrose 5%/0.45% NS 1,000 ML IV SCH (11:10)
--- NOTE | 2018-02-20 12:33 | PN ---
DATE: 02/20/2018 HISTORY OF PRESENT ILLNESS: Ms. Cardoso is 87-year-old female, homebound, came with nausea, vomiting, diarrhea consistent with gastroenteritis. She was found to be pancytopenic, currently improving. PAST MEDICAL HISTORY: Hypertension, atrial fibrillation, anxiety disorder, dementia. ALLERGIES: ALLERGIC TO IV DYES. HOME MEDICATIONS: Zoloft 25 mg daily, metoprolol 50 mg b.i.d., digoxin 0.125 mg daily, Eliquis, Xanax. SOCIAL HISTORY: She lives with aide at home. PERSONAL HISTORY: No history of smoking or alcohol abuse. FAMILY HISTORY: Noncontributory. PHYSICAL EXAMINATION GENERAL: Comfortable in bed, awake, alert, oriented. VITAL SIGNS: Stable. Temperature 98.7, heart rate 80 per minute, respiratory rate 18 per minute, blood pressure 150/70. HEENT: Pallor positive. NECK: No lymphadenopathy. CHEST: Air entry present and equal bilateral. No added sound. CARDIOVASCULAR: S1 and S2 normal. No murmur. No gallop. ABDOMEN: Soft and nontender. No hepatosplenomegaly. EXTREMITIES: No edema. LABORATORY DATA: White count 3.5, hemoglobin 10.7, hematocrit 32.5, platelet 112. Sodium 145, potassium 4.4, creatinine 0.5. ASSESSMENT: 1. Gastroenteritis. 2. Deconditioning. 3. Pancytopenia. PLAN: She is currently on IV fluid, p.o. vancomycin and IV Flagyl. We will continue that and continue metoprolol and digoxin. IV fluids at 60 mL an hour. She is on Eliquis 2.5 mg b.i.d. Labs showed pancytopenia, likely due to viral suppression of bone marrow, spontaneous recovery should be expected. If blood count would not recover, she might have underlying myelodysplasia. Creatinine normal limits. Electrolytes are normal. Akila Strickland MD MTDD
[2018-02-20] MEDS ORDERED: metroNIDAZOLE IV 500 mg/100 ml 500 MG/100 ML BAG IVPB SCH (14:00)
[2018-02-20 14:24] VITALS: BP 127/63; PULSE 62; TEMP 98
[2018-02-20 14:42] LABS: URINE BILIRUBIN NEGATIVE (NEGATIVE); URINE BLOOD LARGE (NEGATIVE); URINE GLUCOSE (UA) NEGATIVE (NEGATIVE); URINE LEUKOCYTE ESTERASE LARGE Leu/uL (NEGATIVE); URINE PROTEIN NEGATIVE mg/dL (<30 mg/dL); URINE UROBILINOGEN 0.2 E.U./dL (<1 E.U./dL)
[2018-02-20 14:43] LABS: URINE COLOR STRAW (YELLOW)
[2018-02-20 14:44] LABS: URINE APPEARANCE CLOUDY (CLEAR)
[2018-02-20 14:47] LABS: URINE WBC TNTC /hpf (0-6)
[2018-02-20 14:48] LABS: URINE BACTERIA MOD (NEG); URINE EPITHELIAL CELLS 0 - 2 /hpf (0-5)
--- NOTE | 2018-02-20 16:17 | CON ---
DATE: 02/20/2018 LOCATION: The patient is seen earlier today in 563, bed 1. CHIEF COMPLAINT: Weakness and diarrhea times several days. HISTORY OF PRESENT ILLNESS: This is an 87-year-old female with past medical history significant for coronary artery disease, atrial fibrillation, hypertension, history of pneumonia, history of osteoarthritis, anxiety, history of hysterectomy, cataract surgery, right hip repair. Admitted through the emergency room. REVIEW OF SYSTEMS: Twelve-point review of systems is performed. PAST MEDICAL HISTORY: Significant for coronary artery disease, atrial fibrillation, hypertension, pneumonia, osteoarthritis, anxiety, dementia, thrombocytopenia, urinary tract infections. PAST SURGICAL HISTORY: Significant for hysterectomy, cataract surgery, hip surgery. ALLERGIES: THE PATIENT IS ALLERGIC TO IV DYE. MEDICATIONS AT HOME: Reviewed and include Zoloft, metoprolol, digoxin, Eliquis, Xanax. PHYSICAL EXAMINATION: GENERAL: The patient is in bed. VITAL SIGNS: Temperature of 98, pulse of 64, respiratory rate of 18 with blood pressure of 114/63, saturation of 99%. HEENT: Examination of HEENT is unremarkable. NECK: Supple. LUNGS: Have decreased breath sounds. HEART: Normal S1, S2. ABDOMEN: Soft, nontender. LABORATORY DATA: Laboratory examination reveals a white count of 3.9, hemoglobin of 10, platelets of 102. Chemistries reveals a BUN of 17, creatinine of 0.8. Cholesterol is 109. Urinalysis is noted, too numerous to count wbc's, many bacteria, yeast. Digoxin level 0.9. Dr. García's note is reviewed. ASSESSMENT AND PLAN: An 87-year-old female with coronary artery disease, atrial fibrillation, mild dementia, thrombocytopenia, pneumonia, osteoarthritis, anxiety, urinary tract infections, admitted with diarrhea. Does have positive group B Streptococcus in the urine and #1 is severe pseudomembranous colitis. The patient has had antibiotics recently and it is unclear if the bacteriuria is symptomatic or not due to her dementia. Currently on Zosyn for short-term. We will discontinue the Zosyn and repeat the urinalysis and urine cultures. Order blood cultures x2. We will also add IV Flagyl to the p.o. vancomycin and significant diarrhea. Pending repeat urinalysis and urine cultures. Primary issue at this time is significant diarrhea. We will address that and pending repeat urine cultures, blood cultures, urinalysis. We will treat with IV Flagyl and p.o. vancomycin. Case was discussed with the nursing staff. We will follow with you and this patient with severe pseudomembranous colitis with positive Clostridium difficile antigen in phase of diarrhea. Emory Garcia MD
--- NOTE | 2018-02-21 18:49 | CP.PCM.DIS ---
Provider - Provider Date of Admission: 02/18/18 11:31 Attending physician: Sulaiman García MD Time Spent in preparation of Discharge (in minutes): 60 Hospital Course - Lab Results Lab Results: Micro Results 02/19/18 14:20 Urine,Random Urine Culture - Final Beta Hemolytic Strep Group B 02/20/18 10:20 Blood Blood Culture - Preliminary NO GROWTH AFTER 24 HOURS 02/20/18 10:00 Blood Blood Culture - Preliminary NO GROWTH AFTER 24 HOURS Most Recent Lab Values WBC 3.5 10^3/ul (4.5-11.0) L 02/19/18 06:30 RBC 3.75 10^6/uL (3.5-6.1) 02/19/18 06:30 Hgb 10.7 g/dL (12.0-16.0) L 02/19/18 06:30 Hct 32.6 % (36.0-48.0) L 02/19/18 06:30 MCV 86.9 fl (80.0-105.0) 02/19/18 06:30 MCH 28.5 pg (25.0-35.0) 02/19/18 06:30 MCHC 32.8 g/dl (31.0-37.0) 02/19/18 06:30 RDW 14.7 % (11.5-14.5) H 02/19/18 06:30 Plt Count 112 10^3/uL (120.0-450.0) L 02/19/18 06:30 MPV 9.5 fl (7.0-11.0) 02/19/18 06:30 Gran % 66.7 % (50.0-68.0) 02/19/18 06:30 Lymph % (Auto) 20.7 % (22.0-35.0) L 02/19/18 06:30 Weber % (Auto) 10.9 % (1.0-6.0) H 02/19/18 06:30 Eos % (Auto) 1.4 % (1.5-5.0) L 02/19/18 06:30 Baso % (Auto) 0.3 % (0.0-3.0) 02/19/18 06:30 Gran # 2.32 (1.4-6.5) 02/19/18 06:30 Lymph # (Auto) 0.7 (1.2-3.4) L 02/19/18 06:30 Weber # (Auto) 0.4 (0.1-0.6) 02/19/18 06:30 Eos # (Auto) 0.1 (0.0-0.7) 02/19/18 06:30 Baso # (Auto) 0.01 K/mm3 (0.0-2.0) 02/19/18 06:30 Sodium 145 mmol/L (132-148) 02/19/18 06:30 Potassium 4.4 mmol/L (3.6-5.0) 02/19/18 06:30 Chloride 107 mmol/L (98-107) 02/19/18 06:30 Carbon Dioxide 27 mmol/L (21-33) 02/19/18 06:30 Anion Gap 15 (10-20) 02/19/18 06:30 BUN 8 mg/dL (7-21) 02/19/18 06:30 Creatinine 0.5 mg/dl (0.7-1.2) L 02/19/18 06:30 Est GFR ( Amer) > 60 02/19/18 06:30 Est GFR (Non-Af Amer) > 60 02/19/18 06:30 Random Glucose 126 mg/dL (70-110) H 02/19/18 06:30 Hemoglobin A1c 5.6 % (4.2-6.5) 02/19/18 06:30 Calcium 8.9 mg/dL (8.4-10.5) 02/19/18 06:30 Phosphorus 2.3 mg/dL (2.5-4.5) L 02/19/18 06:30 Magnesium 1.8 mg/dL (1.7-2.2) 02/19/18 06:30 Total Bilirubin 0.4 mg/dL (0.2-1.3) 02/19/18 06:30 AST 26 U/L (14-36) 02/19/18 06:30 ALT 19 U/L (7-56) 02/19/18 06:30 Alkaline Phosphatase 74 U/L (38-126) 02/19/18 06:30 Total Protein 6.0 g/dL (5.8-8.3) 02/19/18 06:30 Albumin 3.3 g/dL (3.0-4.8) 02/19/18 06:30 Globulin 2.6 gm/dL 02/19/18 06:30 Albumin/Globulin Ratio 1.3 (1.1-1.8) 02/19/18 06:30 Triglycerides 96 mg/dL (35-160) 02/19/18 06:30 Cholesterol 109 mg/dL (130-200) L 02/19/18 06:30 LDL Cholesterol Direct 59 mg/dL (0-129) 02/19/18 06:30 HDL Cholesterol 29 mg/dL (29-60) 02/19/18 06:30 TSH 3rd Generation 2.07 mIU/mL (0.46-4.68) 02/19/18 06:30 Urine Color Straw (YELLOW) 02/20/18 14:35 Urine Appearance Cloudy (CLEAR) 02/20/18 14:35 Urine pH 6.0 (4.7-8.0) 02/20/18 14:35 Ur Specific Hawkins 1.010 (1.005-1.035) 02/20/18 14:35 Urine Protein Negative mg/dL (<30 mg/dL) 02/20/18 14:35 Urine Glucose (UA) Negative mg/dL (NEGATIVE) 02/20/18 14:35 Urine Ketones Negative mg/dL (NEGATIVE) 02/20/18 14:35 Urine Blood Large (NEGATIVE) H 02/20/18 14:35 Urine Nitrate Negative (NEGATIVE) 02/20/18 14:35 Urine Bilirubin Negative (NEGATIVE) 02/20/18 14:35 Urine Urobilinogen 0.2 E.U./dL (<1 E.U./dL) 02/20/18 14:35 Ur Leukocyte Esterase Large Andrzej/uL (NEGATIVE) H 02/20/18 14:35 Urine RBC 5 - 10 /hpf (0-2) 02/20/18 14:35 Urine WBC Tntc /hpf (0-6) 02/20/18 14:35 Ur Epithelial Cells 0 - 2 /hpf (0-5) 02/20/18 14:35 Urine Bacteria Mod (NEG) 02/20/18 14:35 Urine Other Uyeast 02/19/18 14:20 Digoxin 0.9 ng/mL (0.8-2.0) 02/17/18 19:20 - Hospital Course Hospital Course: DATE: 02/20/2018 HISTORY OF PRESENT ILLNESS: Ms. Cardoso is 87-year-old female, homebound, came with nausea, vomiting, diarrhea consistent with gastroenteritis. She was found to be pancytopenic, currently improving. PAST MEDICAL HISTORY: Hypertension, atrial fibrillation, anxiety disorder, dementia. ALLERGIES: ALLERGIC TO IV DYES. HOME MEDICATIONS: Zoloft 25 mg daily, metoprolol 50 mg b.i.d., digoxin 0.125 mg daily, Eliquis, Xanax. SOCIAL HISTORY: She lives with aide at home. PERSONAL HISTORY: No history of smoking or alcohol abuse. FAMILY HISTORY: Noncontributory. PHYSICAL EXAMINATION GENERAL: Comfortable in bed, awake, alert, oriented. VITAL SIGNS: Stable. Temperature 98.7, heart rate 80 per minute, respiratory rate 18 per minute, blood pressure 150/70. HEENT: Pallor positive. NECK: No lymphadenopathy. CHEST: Air entry present and equal bilateral. No added sound. CARDIOVASCULAR: S1 and S2 normal. No murmur. No gallop. ABDOMEN: Soft and nontender. No hepatosplenomegaly. EXTREMITIES: No edema. LABORATORY DATA: White count 3.5, hemoglobin 10.7, hematocrit 32.5, platelet 112. Sodium 145, potassium 4.4, creatinine 0.5. ASSESSMENT: 1. Gastroenteritis. 2. Deconditioning. 3. Pancytopenia. PLAN: She is currently on IV fluid, p.o. vancomycin and IV Flagyl. We will continue that and continue metoprolol and digoxin. IV fluids at 60 mL an hour. She is on Eliquis 2.5 mg b.i.d. Labs showed pancytopenia, likely due to viral suppression of bone marrow, spontaneous recovery should be expected. If blood count would not recover, she might have underlying myelodysplasia. Creatinine normal limits. Electrolytes are normal. transfer to TCU for gait improvement. Akila Strickland MD - Date & Time of H&P Date of H&P: 02/20/18 Time of H&P: 10:00 Discharge Exam - Head Exam Head Exam: ATRAUMATIC, NORMOCEPHALIC Discharge Plan - Discharge Medications Prescriptions: Sertraline HCl [Zoloft] 25 mg PO DAILY #7 tablet Vancomycin [Vancocin (Oral/Rectal USE)] 250 mg PO QID #16 vial - Follow Up Plan Condition: GOOD Disposition: TRANSF TO SNF Instructions: Urinary Tract Infections in Adults, Preventing Falls in the Older Adult, Atrial Fibrillation (DC), Dehydration, Adult (DC), Clostridium difficile, Generalized Weakness (DC), Dementia (DC) Referrals: Estrellita Obrien DPM [Staff Provider] - Efra Townsend MD [Staff Provider] - Sulaiman García MD [Staff Provider] -
== END 2018-02-20 15:36 | DRG 372 ==
LOC: ED 11:57 → ERH 15:31 → UNDOADMIN 15:31 → ERH 16:07 → 5RNO 17:37 → ERH 02-18 11:31 → 5RNO 02-18 11:31
PROVIDERS: ADMIT Internal Medicine; ATTEND Internal Medicine
DX: A04.72 Enterocolitis due to Clostridium difficile, not specified as recurrent (principal); D61.818 Other pancytopenia; D69.3 Immune thrombocytopenic purpura; F03.91 Unspecified dementia, unspecified severity, with behavioral disturbance; E86.0 Dehydration; F41.9 Anxiety disorder, unspecified; I08.0 Rheumatic disorders of both mitral and aortic valves; I10 Essential (primary) hypertension; I25.10 Atherosclerotic heart disease of native coronary artery without angina pectoris; I27.20 Pulmonary hypertension, unspecified; I48.2 Chronic atrial fibrillation; M19.90 Unspecified osteoarthritis, unspecified site; Z22.330 Carrier of Group B streptococcus; Z78.9 Other specified health status; Z79.01 Long term (current) use of anticoagulants; Z79.899 Other long term (current) drug therapy; Z85.820 Personal history of malignant melanoma of skin; Z87.01 Personal history of pneumonia (recurrent); Z87.440 Personal history of urinary (tract) infections; Z87.81 Personal history of (healed) traumatic fracture; Z90.710 Acquired absence of both cervix and uterus; Z98.49 Cataract extraction status, unspecified eye; R26.2 Difficulty in walking, not elsewhere classified; Z91.041 Radiographic dye allergy status

== ENCOUNTER 2018-02-20 15:38 | Inpatient (IN) | payer MEDICARE ==
[2018-02-20] MEDS: Vancomycin 500 mg (Oral/Rectal USE) PO SCH ×2 (17:48→21:45)
[2018-02-20 17:57] VITALS: BMI 15.0
[2018-02-20] MEDS ORDERED: Pneumococcal 23-Valent Vaccine IM ONE (17:57)
[2018-02-20] MEDS: metroNIDAZOLE IV 500 mg/100 ml 500 MG/100 ML BAG IVPB SCH (21:40)
[2018-02-21] MEDS: metroNIDAZOLE IV 500 mg/100 ml 500 MG/100 ML BAG IVPB SCH ×3 (05:24→21:34)
[2018-02-21] MEDS: Digoxin 125 mcg (0.125 mg) Tab PO SCH (10:20)
[2018-02-21] MEDS: Vancomycin 500 mg (Oral/Rectal USE) PO SCH (12:17)
[2018-02-21] MEDS: Vancomycin 25 MG/ML PO SCH ×2 (16:12→21:35)
--- NOTE | 2018-02-21 19:18 | HP ---
HISTORY OF PRESENT ILLNESS: Ms. Cardoso is an 87-year-old female admitted to the regular floor with nausea, vomiting, consistent with acute gastroenteritis. She was also pancytopenic. She is transferred to Transitional Care Unit for deconditioning and gait improvement. PAST MEDICAL HISTORY: Hypertension, atrial fibrillation, anxiety disorder. ALLERGIES: IV DYES. HOME MEDICATIONS: Zoloft, metoprolol, digoxin, Eliquis, Xanax. SOCIAL HISTORY: Lives at home. PERSONAL HISTORY: No history of smoking or alcohol abuse. FAMILY HISTORY: Noncontributory. PHYSICAL EXAMINATION: GENERAL: Comfortable in bed, in no acute distress. VITAL SIGNS: Temperature 98.7, heart rate 86 per minute, respiratory rate is 15 per minute, blood pressure 130/80. HEENT: Pallor positive. NECK: No lymphadenopathy. CHEST: Air entry present and equal bilateral. No added sound. CARDIOVASCULAR: S1 and S2 normal. No murmur. No gallop. ABDOMEN: Soft and nontender. No hepatosplenomegaly. EXTREMITIES: No edema. LABORATORY DATA: White count 3.5, hemoglobin 10.7, hematocrit 32.5, platelet 112, creatinine 0.5. ASSESSMENT: 1. Gastroenteritis. 2. Deconditioning. 3. Pancytopenia. PLAN: Continue physical therapy for gait dysfunction. Continue digoxin 0.125 mg daily, metoprolol 50 mg every 12 hours, vancomycin 250 mg p.o. q.i.d., Zoloft 25 mg daily, Norvasc 5 mg daily. Akila Strickland MD
--- NOTE | 2018-02-21 22:46 | CON ---
DATE: CHIEF COMPLAINT: Diarrhea times several days. HISTORY OF PRESENT ILLNESS: This is an 87-year-old female with past medical history of coronary artery disease, atrial fibrillation, hypertension, pneumonia, osteoarthritis, anxiety, with history of hysterectomy and cataract surgery, and right hip surgery, who was admitted yesterday to acute care because of diarrhea and found to have pseudomembranous colitis, and the patient also had a group B strep in the urine culture, Infectious Disease consultation requested, now transferred to the Transitional Care, to room 317. States she is having diarrhea. She denies any urinary tract symptoms. No dysuria or frequency, and her diarrhea has improved. No fevers and chills. No nausea or vomiting. PAST MEDICAL HISTORY: Significant for osteoarthritis, anxiety, dementia, coronary artery disease, atrial fibrillation, hypertension, pneumonia, osteoarthritis, anxiety, dementia, thrombocytopenia, urinary tract infection. PAST SURGICAL HISTORY: Significant for hysterectomy, cataract surgery and hip surgery. ALLERGIES: THE PATIENT IS ALLERGIC TO IV DYE. MEDICATIONS AT HOME: Are reviewed and include digoxin, metoprolol, Zoloft, Eliquis and Xanax. PHYSICAL EXAMINATION: GENERAL: Patient is in bed, in no acute distress, nontoxic, answering questions. VITAL SIGNS: Temperature of 98, blood pressure is 120/50, respiratory rate of 18, heart rate of 59. HEENT: Unremarkable. NECK: Supple. LUNGS: Have decreased breath sounds. HEART: Normal S1 and S2. ABDOMEN: Soft, nontender. LABORATORY DATA: Reveals a white count of 3.5, hemoglobin of 10 and a platelets of 112. BUN of 8, creatinine of 0.5. Urinalysis is noted to have too numerous to count wbc's and yeast in the urine. Digoxin level was reported at 0.9. The blood cultures are reported to be negative. Stool C. diff is positive, and the urine culture has group B strep, beta hemolytic strep group B. ASSESSMENT AND PLAN: This is an 87-year-old female with past medical history significant for coronary artery disease, anxiety, osteoarthritis and atrial fibrillation, hypertension, pneumonia, and admitted now with severe pseudomembranous colitis. We will treat with p.o. vancomycin and IV Flagyl, and I doubt the group B strep to be a pathogen, she is not having any symptoms, we will check on the repeat urinalysis and urine culture, and we will make further recommendations upon the availability of initial results. We will follow closely with you. Emory Garcia MD
[2018-02-22] MEDS: metroNIDAZOLE IV 500 mg/100 ml 500 MG/100 ML BAG IVPB SCH ×3 (05:42→21:08)
--- NOTE | 2018-02-22 09:15 | CP.PCM.PCO ---
Physician Communication Note - Physician Communication Note Physician Communication Note: pt will be seen by
[2018-02-22] MEDS: Digoxin 125 mcg (0.125 mg) Tab PO SCH (10:11)
[2018-02-22] MEDS: Vancomycin 25 MG/ML PO SCH ×4 (10:12→21:10)
--- NOTE | 2018-02-22 15:44 | CP.PCM.PN ---
Subjective - Date & Time of Evaluation Date of Evaluation: 02/22/18 Time of Evaluation: 13:45 - Subjective Subjective: Not in distress, no fevers. Objective - Vital Signs/Intake and Output Vital Signs (last 24 hours): Temp Pulse Resp BP Pulse Ox 97.8 F 70 20 126/69 02/21/18 16:00 02/21/18 21:39 02/21/18 16:00 02/21/18 21:39 Intake and Output: 02/22/18 02/22/18 06:59 18:59 Intake Total 360 Balance 360 - Medications Medications: Current Medications Alprazolam (Xanax) 0.5 mg PO HS JARETH PRN Reason: Protocol Stop: 02/27/18 22:01 Last Admin: 02/21/18 22:00 Dose: Not Given Amlodipine Besylate (Norvasc) 5 mg PO DAILY JARETH PRN Reason: Protocol Last Admin: 02/21/18 10:22 Dose: 5 mg Apixaban (Eliquis) 2.5 mg PO Q12 JARETH PRN Reason: Protocol Last Admin: 02/21/18 21:34 Dose: 2.5 mg Digoxin (Digoxin) 0.125 mg PO DAILY JARETH PRN Reason: Protocol Last Admin: 02/21/18 10:20 Dose: 0.125 mg Metronidazole (Flagyl) 500 mg in 100 mls @ 100 mls/hr IVPB Q8 JARETH PRN Reason: Protocol Last Admin: 02/22/18 05:42 Dose: 100 mls/hr Metoprolol Tartrate (Lopressor) 50 mg PO Q12 JARETH PRN Reason: Protocol Last Admin: 02/21/18 21:39 Dose: 50 mg Risperidone (Risperdal Tab) 0.25 mg PO HS JARETH PRN Reason: Protocol Last Admin: 02/21/18 21:34 Dose: 0.25 mg Sertraline HCl (Zoloft) 25 mg PO DAILY JARETH PRN Reason: Protocol Last Admin: 02/21/18 10:23 Dose: 25 mg Vancomycin HCl (Vancocin 25 Mg/Ml (Oral Use)) 250 mg PO QID JARETH PRN Reason: Protocol Last Admin: 02/21/18 21:35 Dose: 250 mg - Constitutional Appears: Chronically Ill - Head Exam Head Exam: NORMAL INSPECTION - Respiratory Exam Respiratory Exam: Decreased Breath Sounds - Cardiovascular Exam Cardiovascular Exam: +S1, +S2 - GI/Abdominal Exam GI & Abdominal Exam: Soft. absent: Tenderness Assessment and Plan - Assessment and Plan (Free Text) Plan: Assessment Pseudomembranous colitis Asymptomatic bacteriuria with group B Strep history of sepsis secondary to E. coli urinary tract infection chronic atrial fibrillation dementia history of thrombocytopenia hypertension anxiety disorder arthritis history of skin cancer hisory of right hip fracture Plan Continue PO Vancomycin day 2 and IV Flagyl has been added by PMD - complete 10 days of therapy (january d/c flagyl once diarrhea is resolved) follow up repeat urinalysis and urine cultures - will not treat Group B Strep in the urine since the patient does not have symptoms will monitor clinically
--- NOTE | 2018-02-22 16:07 | CP.PCM.PN ---
Subjective - Date & Time of Evaluation Date of Evaluation: 02/22/18 Time of Evaluation: 12:30 - Subjective Subjective: The patient was seen seated. She was seen in the presence of her niece and close friend Derian ON ACTam [employer]DERON. While disoriented to time she is engaging. She is of the impression that I am a surveillance manager [employer] (a local bag mender (it is unclear to me if this is a friend or somebody that had to her in the past In any event she appears to be affable, comfortable, engaging but has cognitive distortions. Objective - Vital Signs/Intake and Output Vital Signs (last 24 hours): Temp Pulse Resp BP Pulse Ox 97.8 F 63 20 120/57 L 02/21/18 16:00 02/22/18 10:11 02/21/18 16:00 02/22/18 10:11 Intake and Output: 02/22/18 02/22/18 06:59 18:59 Intake Total 360 Balance 360 - Medications Medications: Current Medications Alprazolam (Xanax) 0.5 mg PO HS JARETH PRN Reason: Protocol Stop: 02/27/18 22:01 Last Admin: 02/21/18 22:00 Dose: Not Given Amlodipine Besylate (Norvasc) 5 mg PO DAILY JARETH PRN Reason: Protocol Last Admin: 02/22/18 10:11 Dose: 5 mg Apixaban (Eliquis) 2.5 mg PO Q12 JARETH PRN Reason: Protocol Last Admin: 02/22/18 10:11 Dose: 2.5 mg Digoxin (Digoxin) 0.125 mg PO DAILY JARETH PRN Reason: Protocol Last Admin: 02/22/18 10:11 Dose: 0.125 mg Metronidazole (Flagyl) 500 mg in 100 mls @ 100 mls/hr IVPB Q8 JARETH PRN Reason: Protocol Last Admin: 02/22/18 14:29 Dose: 100 mls/hr Metoprolol Tartrate (Lopressor) 50 mg PO Q12 JARETH PRN Reason: Protocol Last Admin: 02/22/18 10:11 Dose: Not Given Risperidone (Risperdal Tab) 0.25 mg PO HS JARETH PRN Reason: Protocol Last Admin: 02/21/18 21:34 Dose: 0.25 mg Sertraline HCl (Zoloft) 25 mg PO DAILY JARETH PRN Reason: Protocol Last Admin: 02/22/18 10:12 Dose: 25 mg Vancomycin HCl (Vancocin 25 Mg/Ml (Oral Use)) 250 mg PO QID JARETH PRN Reason: Protocol Last Admin: 02/22/18 14:29 Dose: 250 mg - Constitutional Appears: Well, No Acute Distress, Confused - Psychiatric Exam Psychiatric exam: Normal Mood (Slightly elevated) Assessment and Plan - Assessment and Plan (Free Text) Assessment: Patient different men reportedly at home and that she is more engaging, active, cooperative and she speaks of depression but does not appear to be depressed. Rather she appears to be confused with visual hallucinatory experiences. These do not appear problematic at this moment. Perhaps that is due to I risperidone initiation Plan: Continue to monitor with you
--- NOTE | 2018-02-22 18:15 | PN ---
DATE: 02/22/2018 SUBJECTIVE: The patient is an 87-year-old, seen and examined, sitting in chair, seems to be comfortable, eating and tolerating. No more complaints of diarrhea. PHYSICAL EXAMINATION: VITAL SIGNS: She is afebrile, pulse 63, respirations 18, blood pressure 120/57. LUNGS: Bilateral fair airflow. No rhonchi or crackle. HEART: S1, S2 audible. No murmur. ABDOMEN: Soft, nontender. No rebound, no guarding. NEUROLOGICAL: The patient is awake and alert, forgetful. ASSESSMENT: 1. Clostridium difficile colitis. 2. Status post with dehydration. 3. Dementia. 4. History of depression. 5. History of atrial fibrillation. PLAN: We will continue the patient on current medications. She is on digoxin. She is on Eliquis. She is on IV Flagyl. She is on p.o. vancomycin and she is getting Xanax as needed. I will follow up this patient in a.m. Sulaiman García MD
[2018-02-22 18:51] LABS: URINE BILIRUBIN NEGATIVE (NEGATIVE); URINE BLOOD NEGATIVE (NEGATIVE); URINE GLUCOSE (UA) NEGATIVE (NEGATIVE); URINE LEUKOCYTE ESTERASE SMALL Leu/uL (NEGATIVE); URINE PROTEIN NEGATIVE mg/dL (<30 mg/dL); URINE UROBILINOGEN 0.2 E.U./dL (<1 E.U./dL)
[2018-02-22 18:53] LABS: URINE APPEARANCE SLIGHT-CLOUDY (CLEAR); URINE COLOR DARK YELLOW (YELLOW)
[2018-02-22 19:02] LABS: URINE BACTERIA TRACE (NEG); URINE EPITHELIAL CELLS 0 - 2 /hpf (0-5); URINE RBC 0 - 2 /hpf (0-2)
[2018-02-23] MEDS: metroNIDAZOLE IV 500 mg/100 ml 500 MG/100 ML BAG IVPB SCH ×2 (05:16→13:27)
[2018-02-23] MEDS: Digoxin 125 mcg (0.125 mg) Tab PO SCH (10:16)
[2018-02-23] MEDS: Vancomycin 25 MG/ML PO SCH ×4 (10:17→21:03)
--- NOTE | 2018-02-23 21:36 | PN ---
DATE: 02/23/2018 SUBJECTIVE: The patient is 87 years old, seen and examined, sitting in chair. Seems to be forgetful, but pleasant, participating in therapy, eating fair. No nausea, vomiting noted. No diarrhea. PHYSICAL EXAMINATION: VITAL SIGNS: She is afebrile, pulse 62, respirations 18, blood pressure 137/60. LUNGS: Bilateral good airflow. No rhonchi or crackle. HEART: S1 and S2 audible. ABDOMEN: Soft. Nontender. No rebound. No guarding. NEUROLOGICAL: She is awake, alert, oriented, communicative. LABORATORY EXAM: Blood cultures are negative. Urine has no growth. ASSESSMENT: 1. Clostridium difficile colitis. 2. Mild dementia. 3. Chronic atrial fibrillation. 4. Hypertension. 5. Bilateral leg edema. PLAN: I will order for ALISTAIR stocking. We will give her Tylenol as needed for knee pain. Currently, the patient is on digoxin, Eliquis. She is on metronidazole, Risperdal. She is on vancomycin and Zoloft. We will continue that. I will follow up her electrolyte intermittently. Repeat urinalysis is unremarkable. Encourage ambulation. Follow up the patient in the a.m. ALISTAIR stocking for ankle edema has been ordered. Sulaiman García MD
--- NOTE | 2018-02-24 08:39 | PN ---
DATE: 02/23/2018 SUBJECTIVE: Patient was seen in bed, in no acute distress, nontoxic, in room 317. Patient did have loose bowel movement, but only once, not watery. No fevers and chills. PHYSICAL EXAMINATION: VITAL SIGNS: Temperature is 98, blood pressure 140/50, respiratory rate of 18, heart rate of 64. HEENT: Unremarkable. NECK: Supple. LUNGS: Decreased breath sounds. HEART: Normal S1 and S2. ABDOMEN: Soft, nontender. LABORATORY DATA: Repeat urinalysis from yesterday reveals white count of 5 to 10 and microbiology reveals the patient's repeat urine culture from 02/20/2018 has no growth. Blood cultures have no growth. Review of orders reveals the patient to be on IV Flagyl and p.o. vancomycin. ASSESSMENT AND PLAN: This is an 87-year-old female with pseudomembranous colitis, asymptomatic bacteriuria with repeat urinalysis unremarkable, urine culture negative, history of sepsis secondary to urinary tract infection with Escherichia coli, chronic atrial fibrillation, dementia, history of thrombocytopenia, hypertension, anxiety, on p.o. vancomycin day #3. Patient's diarrhea continues to improve with this. Discontinue the IV Flagyl and complete 14 days of p.o. vancomycin. Emory Garcia MD
[2018-02-24] MEDS: Vancomycin 25 MG/ML PO SCH ×4 (10:59→21:38)
[2018-02-24] MEDS: Digoxin 125 mcg (0.125 mg) Tab PO SCH (11:08)
--- NOTE | 2018-02-24 17:47 | CP.PCM.PN ---
Subjective - Date & Time of Evaluation Date of Evaluation: 02/24/18 Time of Evaluation: 16:00 - Subjective Subjective: The patient is an 87-year-old white female, , with a presumable Lewy body dementia. She is alert, pleasant, mildly confused. He is aware now that I am not Mr. Liliana Mcclain; someone she had confused with yesterday.. Rather she is able to identify me as a doctor She speaks appropriately of feeling said that her niece was visiting from [place] who was present at bedside and is about to depart. This led to a general discussion of the passage of time of life review. The patient is not agitated nor psychotic is compliant at this juncture. Objective - Vital Signs/Intake and Output Vital Signs (last 24 hours): Temp Pulse Resp BP Pulse Ox 99.3 F 69 18 129/57 L 99 02/24/18 16:00 02/24/18 16:00 02/24/18 16:00 02/24/18 16:00 02/24/18 16:00 Intake and Output: 02/24/18 02/24/18 06:59 18:59 Intake Total 240 Output Total 250 Balance -10 - Medications Medications: Current Medications Acetaminophen (Tylenol 325mg Tab) 650 mg PO Q6H PRN; Protocol PRN Reason: Arthritis Last Admin: 02/23/18 23:51 Dose: 650 mg Alprazolam (Xanax) 0.5 mg PO BID PRN; Protocol PRN Reason: Insomnia Stop: 02/27/18 22:01 Amlodipine Besylate (Norvasc) 5 mg PO DAILY JARETH PRN Reason: Protocol Last Admin: 02/24/18 10:58 Dose: 5 mg Apixaban (Eliquis) 2.5 mg PO Q12 JARETH PRN Reason: Protocol Last Admin: 02/24/18 10:58 Dose: 2.5 mg Digoxin (Digoxin) 0.125 mg PO DAILY JARETH PRN Reason: Protocol Last Admin: 02/24/18 11:08 Dose: 0.125 mg Metoprolol Tartrate (Lopressor) 50 mg PO 0600,1800 JARETH PRN Reason: Protocol Last Admin: 02/24/18 05:57 Dose: 50 mg Risperidone (Risperdal Tab) 0.25 mg PO HS JARETH PRN Reason: Protocol Last Admin: 02/23/18 21:04 Dose: 0.25 mg Sertraline HCl (Zoloft) 25 mg PO DAILY JARETH PRN Reason: Protocol Last Admin: 02/24/18 10:59 Dose: 25 mg Vancomycin HCl (Vancocin 25 Mg/Ml (Oral Use)) 250 mg PO QID JARETH PRN Reason: Protocol Last Admin: 02/24/18 14:44 Dose: 250 mg - Constitutional Appears: Well - Head Exam Head Exam: ATRAUMATIC - Psychiatric Exam Psychiatric exam: Depressed (Slightly subdued) Assessment and Plan - Assessment and Plan (Free Text) Assessment: Patient appears less emotionally turbulent, less confused, less responding to internal stimuli. She appears to be in no acute distress except that she is expressing missing her niece who was about to the part to go back to [place]. Seems to miss the "good old days" also. Plan: We will maintain on present dose of Risperdal now; at least car chronologically she appears to have improved on this pharmacologic regimen
--- NOTE | 2018-02-24 19:11 | PN ---
DATE: 02/24/2018 SUBJECTIVE: Patient is in bed, in no acute distress, nontoxic. PHYSICAL EXAMINATION: VITAL SIGNS: Temperature is 98, blood pressure is 120/60, respiratory rate of 18. HEENT: Unremarkable. NECK: Supple. LUNGS: Decreased breath sounds. HEART: Normal S1 and S2. ABDOMEN: Soft, nontender. LABORATORY DATA: Reveals the patient's urinalysis is noted and review of orders reveals the patient to be on p.o. vancomycin. ASSESSMENT AND PLAN: An 87-year-old female with pseudomembranous colitis; asymptomatic bacteriuria with repeat urinalysis unremarkable, urine culture negative; history of sepsis secondary to urinary tract infection with Escherichia coli in the past; chronic atrial fibrillation; dementia. On day number 4 of vancomycin;we will continue 14 days of p.o. vancomycin, day number 4 of 14 days. Patient's diarrhea is improving. Emory Garcia MD
--- NOTE | 2018-02-24 20:41 | PN ---
DATE: 02/24/2018 SUBJECTIVE: The patient is 87-year-old, seen and examined, sitting in chair, participating in therapy, eating well. Had 2 bowel movement this morning. No abdominal pain noted. Bilateral leg swelling has improved. PHYSICAL EXAMINATION VITAL SIGNS: Patient is afebrile, pulse 69, respiration 18, blood pressure 140/70. LUNGS: Bilateral fair airflow. No rhonchi or crackle. HEART: S1 and S2 audible. ABDOMEN: Soft, nontender. No rebound, no guarding. NEUROLOGICAL: Patient is awake, alert, oriented. Answers simple question. Get confused and forgetful at times. ASSESSMENT: 1. Dementia with sundowning. 2. Anxiety disorder. 3. Chronic atrial fibrillation. 4. Clostridium difficile colitis. PLAN: Patient is currently on Ciprodex every 6 hours. She is told to eat soft diet, that is low fiber and continue physical therapy. We will follow the patient in a.m. Sulaiman García MD
[2018-02-25] MEDS: Digoxin 125 mcg (0.125 mg) Tab PO SCH (09:24)
[2018-02-25] MEDS: Vancomycin 25 MG/ML PO SCH ×4 (09:26→21:17)
--- NOTE | 2018-02-25 16:14 | PN ---
DATE: 02/25/2018 SUBJECTIVE: The patient is 87 years old, seen and examined, sitting in chair. Seems to be confused. She said she did not eat anything since morning although nurse said she ate well this morning. No bowel movement so far. Leg swelling has improved. She is more interactive, awake and alert. PHYSICAL EXAMINATION: VITAL SIGNS: She is afebrile, pulse 65, respirations 17, blood pressure 119/68. LUNGS: Bilateral fair airflow. No rhonchi or crackle. HEART: S1, S2 audible. ABDOMEN: Soft, nontender. No rebound, no guarding. NEUROLOGICAL: The patient is awake and alert, able to communicate. LABORATORY DATA: Blood sugar is . ASSESSMENT: 1. Chronic atrial fibrillation. 2. Clostridium difficile colitis. 3. Hypertension. 4. Anxiety disorder. PLAN: I will order for CBC and CMP for morning. Her iron is 37, saturation is low; however, TIBC is also low. She seems to have anemia of chronic disease. Her ferritin is 251. I will order for one study for morning and decide if she need iron infusion. Sulaiman García MD
--- NOTE | 2018-02-25 18:22 | CP.PCM.PN ---
Subjective - Date & Time of Evaluation Date of Evaluation: 02/25/18 Time of Evaluation: 12:45 - Subjective Subjective: Patient seen in presence of niece and physical therapist Alert, friendly, and confused regarding time. Surprisingly was able to recall that yesterday at the day before she confused me with Mr. WELLS. Thus it would appear to have patchy recall the patch memory deficits. Is not agitated. Is friendly. Can speak in a goal-directed manner. He does not appear to be overtly psychotic at this time. Objective - Vital Signs/Intake and Output Vital Signs (last 24 hours): Temp Pulse Resp BP Pulse Ox 97.8 F 73 17 112/62 98 02/25/18 08:49 02/25/18 17:24 02/25/18 08:49 02/25/18 17:24 02/25/18 08:49 Intake and Output: 02/25/18 02/25/18 06:59 18:59 Intake Total 240 Output Total 250 Balance -10 - Medications Medications: Current Medications Acetaminophen (Tylenol 325mg Tab) 650 mg PO Q6H PRN; Protocol PRN Reason: Arthritis Last Admin: 02/25/18 12:59 Dose: 650 mg Alprazolam (Xanax) 0.5 mg PO BID PRN; Protocol PRN Reason: Insomnia Stop: 02/27/18 22:01 Amlodipine Besylate (Norvasc) 5 mg PO DAILY JARETH PRN Reason: Protocol Last Admin: 02/25/18 09:25 Dose: 5 mg Apixaban (Eliquis) 2.5 mg PO Q12 JARETH PRN Reason: Protocol Last Admin: 02/25/18 09:25 Dose: 2.5 mg Digoxin (Digoxin) 0.125 mg PO DAILY JARETH PRN Reason: Protocol Last Admin: 02/25/18 09:24 Dose: Not Given Metoprolol Tartrate (Lopressor) 50 mg PO 0600,1800 JARETH PRN Reason: Protocol Last Admin: 02/25/18 17:24 Dose: 50 mg Risperidone (Risperdal Tab) 0.25 mg PO HS JARETH PRN Reason: Protocol Last Admin: 02/24/18 21:39 Dose: 0.25 mg Sertraline HCl (Zoloft) 25 mg PO DAILY JARETH PRN Reason: Protocol Last Admin: 02/25/18 09:27 Dose: 25 mg Vancomycin HCl (Vancocin 25 Mg/Ml (Oral Use)) 250 mg PO QID JARETH PRN Reason: Protocol Last Admin: 02/25/18 17:23 Dose: 250 mg - Constitutional Appears: Well, No Acute Distress, Confused - Head Exam Head Exam: ATRAUMATIC - Neurological Exam Neurological Exam: Abnormal Gait - Psychiatric Exam Psychiatric exam: Normal Affect, Normal Mood Assessment and Plan - Assessment and Plan (Free Text) Assessment: Patient appears to have stabilized at a comfortable level with some confusion. Is not complaining of any overt psychotic signs or symptoms at this juncture. Dr. SASHA Reeves note appreciated.
--- NOTE | 2018-02-25 23:23 | PN ---
DATE: 02/25/2018 SUBJECTIVE: The patient is in bed, in no acute distress, nontoxic. PHYSICAL EXAMINATION: VITAL SIGNS: Temperature is 98, blood pressure is now 119/60, respiratory rate of 18. HEENT: Examination of HEENT is unremarkable. NECK: Supple. LUNGS: Have decreased breath sounds. HEART: Normal S1 and S2. ABDOMEN: Soft, nontender. LABORATORY DATA: Laboratory examination reveals the patient's urinalysis is noted. ASSESSMENT AND PLAN: An 87-year-old female who was seen early this morning in room 317 with pseudomembranous colitis and a asymptomatic bacteriuria. Repeat urinalysis unremarkable. Repeat urine cultures negative. The patient with a history of sepsis secondary to urinary tract infection, Escherichia coli in the past in the urine, history of chronic atrial fibrillation, dementia. On day #5 of p.o. vancomycin and complete 14 days of p.o. vancomycin. Emory Garcia MD
[2018-02-26 07:00] LABS: BASO # 0.02 K/mm3 (0.0-2.0); BASO % 0.5 % (0.0-3.0); EOS # 0.1 (0.0-0.7); EOS % 2.9 % (1.5-5.0); GRAN # 2.19 (1.4-6.5); GRAN % 57.2 % (50.0-68.0); HEMOGLOBIN 9.4 g/dL (12.0-16.0); LYMPH # 1.2 (1.2-3.4); LYMPH % 32.1 % (22.0-35.0); MEAN CELL VOLUME 88.9 fl (80.0-105.0); MEAN CORPUSCULAR HEMOGLOBIN 29.1 pg (25.0-35.0); MEAN CORPUSCULAR HGB CONC 32.8 g/dl (31.0-37.0); MEAN PLATELET VOLUME 8.9 fl (7.0-11.0); MONO # 0.3 (0.1-0.6); MONO % 7.3 % (1.0-6.0); RBC 3.23 10^6/uL (3.5-6.1); RED CELL DISTRIBUTION WIDTH 15.3 % (11.5-14.5); WHITE BLOOD COUNT 3.8 10^3/ul (4.5-11.0)
[2018-02-26 07:19] LABS: IRON 38 ug/dL (45-180)
[2018-02-26 07:30] LABS: % IRON SATURATION 21 % (20-55); ALB/GLOB RATIO 1.1 (1.1-1.8); ALBUMIN 2.7 g/dL (3.0-4.8); ALT/SGPT 14 U/L (7-56); AST/SGOT 22 U/L (14-36); BLOOD UREA NITROGEN 7 mg/dL (7-21); CALCIUM 8.3 mg/dL (8.4-10.5); GFR AFRICAN-AMERICAN > 60; GFR NON-AFRICAN AMERICAN > 60; TOTAL IRON BINDING CAPACITY 186 ug/dL (265-497)
[2018-02-26] MEDS: Digoxin 125 mcg (0.125 mg) Tab PO SCH (09:44)
[2018-02-26] MEDS: Vancomycin 25 MG/ML PO SCH ×4 (10:16→21:48)
--- NOTE | 2018-02-26 19:24 | CP.PCM.PN ---
Subjective - Date & Time of Evaluation Date of Evaluation: 02/26/18 Time of Evaluation: 09:45 - Subjective Subjective: Comfortable, no fevers, not in distress. Objective - Vital Signs/Intake and Output Vital Signs (last 24 hours): Temp Pulse Resp BP Pulse Ox 98.2 F 52 L 18 109/64 96 02/26/18 05:50 02/26/18 05:50 02/26/18 05:50 02/26/18 05:50 02/26/18 05:50 Intake and Output: 02/26/18 02/26/18 06:59 18:59 Intake Total 240 Output Total 550 Balance -310 - Medications Medications: Current Medications Acetaminophen (Tylenol 325mg Tab) 650 mg PO Q6H PRN; Protocol PRN Reason: Arthritis Last Admin: 02/25/18 12:59 Dose: 650 mg Alprazolam (Xanax) 0.5 mg PO BID PRN; Protocol PRN Reason: Insomnia Stop: 02/27/18 22:01 Amlodipine Besylate (Norvasc) 5 mg PO DAILY JARETH PRN Reason: Protocol Last Admin: 02/25/18 09:25 Dose: 5 mg Apixaban (Eliquis) 2.5 mg PO Q12 JARETH PRN Reason: Protocol Last Admin: 02/25/18 21:18 Dose: 2.5 mg Digoxin (Digoxin) 0.125 mg PO DAILY JARETH PRN Reason: Protocol Last Admin: 02/25/18 09:24 Dose: Not Given Metoprolol Tartrate (Lopressor) 50 mg PO 0800,1800 JARETH PRN Reason: Protocol Risperidone (Risperdal Tab) 0.25 mg PO HS JARETH PRN Reason: Protocol Last Admin: 02/25/18 21:18 Dose: 0.25 mg Sertraline HCl (Zoloft) 25 mg PO DAILY JARETH PRN Reason: Protocol Last Admin: 02/25/18 09:27 Dose: 25 mg Vancomycin HCl (Vancocin 25 Mg/Ml (Oral Use)) 250 mg PO QID JARETH PRN Reason: Protocol Last Admin: 02/25/18 21:17 Dose: 250 mg - Labs Labs: 02/26/18 06:30 02/26/18 06:30 - Constitutional Appears: Chronically Ill - Head Exam Head Exam: NORMAL INSPECTION - Respiratory Exam Respiratory Exam: Decreased Breath Sounds - Cardiovascular Exam Cardiovascular Exam: +S1, +S2 - GI/Abdominal Exam GI & Abdominal Exam: Soft. absent: Tenderness Assessment and Plan - Assessment and Plan (Free Text) Plan: Assessment Pseudomembranous colitis Asymptomatic bacteriuria with group B Strep history of sepsis secondary to E. coli urinary tract infection chronic atrial fibrillation dementia history of thrombocytopenia hypertension anxiety disorder arthritis history of skin cancer hisory of right hip fracture Plan Continue PO Vancomycin day 6 to complete 10-14 days
--- NOTE | 2018-02-26 21:50 | PN ---
DATE: 02/26/2018 SUBJECTIVE: The patient is an 87-year-old, seen and examined, lying in the bed, seems to be comfortable. Eating well. No nausea or vomiting. No diarrhea. Had one big bowel movement. PHYSICAL EXAMINATION: VITAL SIGNS: She is afebrile, pulse 76, respirations 18, blood pressure 120/66. LUNGS: Bilateral good airflow. No rhonchi or crackle. HEART: S1 and S2 audible. ABDOMEN: Soft. Nontender. No rebound. No guarding. EXTREMITIES: Bilateral legs, no edema. NEUROLOGICAL: She is awake and alert, communicative, forgetful. LABORATORY DATA: WBC 3.8, hemoglobin 9.4, hematocrit 28.7, platelet 128. Chemistry: Sodium 146, potassium 3.7, chloride 109, CO2 of 28, BUN 7, creatinine 0.6. Blood sugar of 96. Calcium 8.3. Iron 38, TIBC 186, saturation was 21. Urinalysis shows it is positive for nitrite with leukocyte. ASSESSMENT: 1. Clostridium difficile colitis. 2. Chronic anemia. 3. Chronic atrial fibrillation. 4. History of hypertension. 5. Dementia with confusion. PLAN: We will give her one iron infusion. We will continue her on Eliquis. Continue her on p.o. vancomycin. She is on Zoloft 25 daily and she is getting Risperdal at bedtime and we will continue her on digoxin, and we will renew her p.o. vancomycin and follow up closely. We will follow up in the a.m. Sulaiman García MD
[2018-02-27] MEDS: Digoxin 125 mcg (0.125 mg) Tab PO SCH (10:04)
[2018-02-27] MEDS: Vancomycin 25 MG/ML PO SCH ×4 (10:19→22:02)
--- NOTE | 2018-02-27 12:18 | CP.PCM.PN ---
Subjective - Date & Time of Evaluation Date of Evaluation: 02/27/18 Time of Evaluation: 10:50 - Subjective Subjective: Comfortable on a chair, no more diarrhea, no nausea, no fevers. Objective - Vital Signs/Intake and Output Vital Signs (last 24 hours): Temp Pulse Resp BP Pulse Ox 97.8 F 64 18 125/72 99 02/26/18 16:00 02/27/18 07:55 02/26/18 16:00 02/27/18 07:55 02/26/18 16:00 - Medications Medications: Current Medications Acetaminophen (Tylenol 325mg Tab) 650 mg PO Q6H PRN; Protocol PRN Reason: Arthritis Last Admin: 02/27/18 02:10 Dose: 650 mg Alprazolam (Xanax) 0.5 mg PO BID PRN; Protocol PRN Reason: Insomnia Stop: 02/27/18 22:01 Amlodipine Besylate (Norvasc) 5 mg PO DAILY JARETH PRN Reason: Protocol Last Admin: 02/26/18 09:45 Dose: Not Given Apixaban (Eliquis) 2.5 mg PO Q12 JARETH PRN Reason: Protocol Last Admin: 02/26/18 21:47 Dose: 2.5 mg Digoxin (Digoxin) 0.125 mg PO DAILY JARETH PRN Reason: Protocol Last Admin: 02/26/18 09:44 Dose: Not Given Metoprolol Tartrate (Lopressor) 50 mg PO 0800,1800 JARETH PRN Reason: Protocol Last Admin: 02/27/18 07:55 Dose: 50 mg Risperidone (Risperdal Tab) 0.25 mg PO HS JARETH PRN Reason: Protocol Last Admin: 02/26/18 21:47 Dose: 0.25 mg Sertraline HCl (Zoloft) 25 mg PO DAILY JARETH PRN Reason: Protocol Last Admin: 02/26/18 10:16 Dose: 25 mg Vancomycin HCl (Vancocin 25 Mg/Ml (Oral Use)) 250 mg PO QID JARETH PRN Reason: Protocol Last Admin: 02/26/18 21:48 Dose: 250 mg - Labs Labs: 02/26/18 06:30 02/26/18 06:30 - Constitutional Appears: Non-toxic, Cachectic, Chronically Ill - Head Exam Head Exam: NORMAL INSPECTION - Neck Exam Neck Exam: absent: Meningismus - Respiratory Exam Respiratory Exam: Decreased Breath Sounds - Cardiovascular Exam Cardiovascular Exam: +S1, +S2 - GI/Abdominal Exam GI & Abdominal Exam: Soft. absent: Tenderness Assessment and Plan - Assessment and Plan (Free Text) Plan: Assessment Pseudomembranous colitis, clinically improved Asymptomatic bacteriuria with group B Strep history of sepsis secondary to E. coli urinary tract infection chronic atrial fibrillation dementia history of thrombocytopenia hypertension anxiety disorder arthritis history of skin cancer hisory of right hip fracture Plan Continue PO Vancomycin day 7 to complete 10 days
--- NOTE | 2018-02-27 12:25 | PN ---
DATE: 02/27/2018 SUBJECTIVE: The patient is 87 years old, seen and examined. Sitting in chair, very forgetful. No nausea or vomiting. Eating and tolerating. As per nurse, she had pasty bowel movement this morning. No more diarrhea. No abdominal pain. Eating fair. PHYSICAL EXAMINATION: VITAL SIGNS: She is afebrile, pulse 63, respirations 18, blood pressure 114/56. LUNGS: Bilateral fair airflow. No rhonchi or crackle. HEART: S1 and S2 audible. ABDOMEN: Soft. Nontender. No rebound. No guarding. NEUROLOGIC: She is awake, alert, oriented, able to communicate, but forgetful. ASSESSMENT: 1. Clostridium difficile colitis, resolving. Repeat test is negative. 2. Anemia of chronic disease. 3. Chronic atrial fibrillation. 4. Dementia with occasional agitation. PLAN: I will give one more rider of Expanite. The patient is scheduled to be discharged in the a.m. I will discontinue contact isolation. Continue all other medications. Sulaiman García MD
[2018-02-27 13:42] VITALS: O2SAT 94
[2018-02-28] MEDS: Digoxin 125 mcg (0.125 mg) Tab PO SCH (09:41)
[2018-02-28] MEDS: Vancomycin 25 MG/ML PO SCH ×2 (10:05→13:29)
[2018-02-28 10:07] VITALS: BP 144/85; PULSE 67
[2018-02-28 10:59] VITALS: PULSE 74; RESP 18; TEMP 97.1
--- NOTE | 2018-02-28 13:45 | CP.PCM.PN ---
Subjective - Date & Time of Evaluation Date of Evaluation: 02/28/18 Time of Evaluation: 11:35 - Subjective Subjective: No fevers, no more diarrhea. Objective - Vital Signs/Intake and Output Vital Signs (last 24 hours): Temp Pulse Resp BP Pulse Ox 98.2 F 66 20 137/74 94 L 02/27/18 13:42 02/28/18 07:53 02/27/18 13:42 02/28/18 07:53 02/27/18 13:42 - Medications Medications: Current Medications Acetaminophen (Tylenol 325mg Tab) 650 mg PO Q6H PRN; Protocol PRN Reason: Arthritis Last Admin: 02/27/18 22:01 Dose: 650 mg Amlodipine Besylate (Norvasc) 5 mg PO DAILY JARETH PRN Reason: Protocol Last Admin: 02/27/18 10:04 Dose: 5 mg Apixaban (Eliquis) 2.5 mg PO Q12 JARETH PRN Reason: Protocol Last Admin: 02/27/18 22:01 Dose: 2.5 mg Digoxin (Digoxin) 0.125 mg PO DAILY JARETH PRN Reason: Protocol Last Admin: 02/27/18 10:04 Dose: 0.125 mg Metoprolol Tartrate (Lopressor) 50 mg PO 0800,1800 JARETH PRN Reason: Protocol Last Admin: 02/28/18 07:53 Dose: 50 mg Risperidone (Risperdal Tab) 0.25 mg PO HS JARETH PRN Reason: Protocol Last Admin: 02/27/18 22:01 Dose: 0.25 mg Sertraline HCl (Zoloft) 25 mg PO DAILY JARETH PRN Reason: Protocol Last Admin: 02/27/18 10:04 Dose: 25 mg Vancomycin HCl (Vancocin 25 Mg/Ml (Oral Use)) 250 mg PO QID JARETH PRN Reason: Protocol Last Admin: 02/27/18 22:02 Dose: 250 mg - Labs Labs: 02/26/18 06:30 02/26/18 06:30 - Constitutional Appears: Chronically Ill - Head Exam Head Exam: NORMAL INSPECTION - Respiratory Exam Respiratory Exam: Decreased Breath Sounds - Cardiovascular Exam Cardiovascular Exam: +S1, +S2 - GI/Abdominal Exam GI & Abdominal Exam: Soft. absent: Tenderness Assessment and Plan - Assessment and Plan (Free Text) Plan: Assessment Pseudomembranous colitis, clinically improved Asymptomatic bacteriuria with group B Strep history of sepsis secondary to E. coli urinary tract infection chronic atrial fibrillation dementia history of thrombocytopenia hypertension anxiety disorder arthritis history of skin cancer hisory of right hip fracture Plan Continue PO Vancomycin day 8 to complete 10 days
== END 2018-02-28 13:41 | disposition home or self-care (01) | DRG 372 ==
LOC: TRCU 15:38
PROVIDERS: ADMIT Internal Medicine; ATTEND Internal Medicine
PROC: F07Z9FZ Gait Training/Functional Ambulation Treatment using Assistive, Adaptive, Supportive or Protective Equipment (ICD-10-PCS; principal; 2018-02-20)
PROC: F07M6ZZ Therapeutic Exercise Treatment of Musculoskeletal System - Whole Body (ICD-10-PCS; 2018-02-20)
PROC: F08Z2ZZ Grooming/Personal Hygiene Treatment (ICD-10-PCS; 2018-02-22)
PROC: F08Z1ZZ Dressing Techniques Treatment (ICD-10-PCS; 2018-02-22)
PROC: F08Z2ZZ Grooming/Personal Hygiene Treatment (ICD-10-PCS; 2018-02-22)
PROC: F08Z0ZZ Bathing/Showering Techniques Treatment (ICD-10-PCS; 2018-02-22)
DX: A04.72 Enterocolitis due to Clostridium difficile, not specified as recurrent (principal); D61.818 Other pancytopenia; F05 Delirium due to known physiological condition; D63.8 Anemia in other chronic diseases classified elsewhere; G31.83 Neurocognitive disorder with Lewy bodies; F02.80 Dementia in other diseases classified elsewhere, unspecified severity, without behavioral disturbance, psychotic disturbance, mood disturbance, and anxiety; F32.89 Other specified depressive episodes; F41.9 Anxiety disorder, unspecified; I10 Essential (primary) hypertension; I25.10 Atherosclerotic heart disease of native coronary artery without angina pectoris; I48.2 Chronic atrial fibrillation; K21.9 Gastro-esophageal reflux disease without esophagitis; M19.90 Unspecified osteoarthritis, unspecified site; Z85.828 Personal history of other malignant neoplasm of skin; Z90.710 Acquired absence of both cervix and uterus; Z86.19 Personal history of other infectious and parasitic diseases; Z86.2 Personal history of diseases of the blood and blood-forming organs and certain disorders involving the immune mechanism; Z87.81 Personal history of (healed) traumatic fracture